=== PATIENT | male | born 1955 | race Caucasian/White ===

== ENCOUNTER 2020-03-29 04:36 | Inpatient (IN) | payer MEDICARE ==
[~2020-03-29] VITALS: Ht 165.1 cm; Wt 72.3 kg
[2020-03-29 05:12] VITALS: BP 117/67; BMI 23.2
[2020-03-29] MEDS ORDERED: BUMEX2 MG PO (05:50)
[2020-03-29] MEDS ORDERED: LISINOPRIL40 MG PO (05:52)
[2020-03-29] MEDS ORDERED: CELEXA20 MG PO (05:53)
[2020-03-29] MEDS ORDERED: PLAVIX75 MG PO (05:53)
[2020-03-29] MEDS ORDERED: JANUMET 50-1,01 EAC1 PO (05:55)
[2020-03-29] MEDS ORDERED: CLEOCIN HCL300 MG PO (05:56)
--- NOTE | 2020-03-29 06:06 | NUR ---
PATIENT ARRIVED AT 0450 FROM [facility] ER, VSS, CODE WORD 9687, CODE STATUS IS FULL CODE, IMPLANTED DEFIBULATOR, S.I. AT [facility] ER, CELLULITIS AND CUT TO RIGHT LEG, COOPERATIVE AND CALM, CONTRACTS FOR SAFETY, WILL [id number] TO MONITOR.
[2020-03-29 06:35] LABS: BASOPHILS 0.2 % (0-2); HEMATOCRIT 32.3 % (42.0-54.0); IMMATURE GRANULOCYTES 0.5 % (0-5); LYMPHOCYTES 23.5 % (15-50); MCH 28.1 pg (26.0-34.0); MCV 90.7 fL (80.0-100.0); MEAN PLATELET VOLUME 10.6 fL (7.4-10.4); MONOCYTES 10.2 % (2-11); NEUTROPHILS 62.6 % (40-80); RBC 3.56 10x6/uL (4.20-6.10); RDW 15.5 % (11.5-14.5); WBC 5.7 10x3/uL (4.8-10.8)
[2020-03-29 06:44] LABS: PLATELET COUNT 312 10x3/uL (130-400)
[2020-03-29 07:17] LABS: ALBUMIN 2.6 g/dL (3.4-5.0); ALKALINE PHOSPHATASE 104 U/L (30-120); ALT (SGPT) 9 U/L (10-68); BILIRUBIN - TOTAL 0.23 mg/dL (0.2-1.3); CALC OSMOLALITY 276 mosm/kg (275-300); CALCIUM 8.7 mg/dL (8.5-10.1); CARBON DIOXIDE 31.5 mmol/L (21.0-32.0); CHLORIDE - SERUM 104 mmol/L (98-107); CHOL - HDL RATIO 4.1 ratio (2.3-4.9); CHOLESTEROL, TOTAL 143 mg/dL (0-200); CREATININE - SERUM 0.6 mg/dL (0.6-1.3); GLUCOSE 89 mg/dL (74-106); HDL CHOLESTEROL 35 mg/dL (32-96); LDL CHOLESTEROL 94 mg/dL (0-100); LDL-HDL RATIO 2.7 ratio (1.5-3.5); POTASSIUM - SERUM 3.6 mmol/L (3.5-5.1); SODIUM 140 mmol/L (136-145); THYROID STIMULATING HORMONE 1.12 uIU/mL (0.36-3.74); TRIGLYCERIDE 72 mg/dL (30-200); UREA NITROGEN 9 mg/dL (7-18); eGFR NON AFRICAN AMERICAN > 90 mL/min (90-120)
[2020-03-29 10:30] VITALS: BP 112/57
[2020-03-29 12:42] VITALS: BMI 23.2
--- NOTE | 2020-03-29 17:17 | NUR ---
RECEIVED UP IN WHEELCHAIR THIS AM.STATES "nothing has changed " when asked if he still has thoughts of hurting self.C/O PAIN TO RT LOWER LEG.BANDAID TO AREA DISTAL TO RT KNEE CLEAN AND DRY,SKIN WARM TO TOUCH.WILL CONTINUE WITH CURRENT PLAN OF CARE,MONITOR FOR CHANGES AND SAFETY.MEDICATE FOR PAIN PER .
[2020-03-29 20:00] VITALS: BP 94/65
--- NOTE | 2020-03-30 00:39 | NUR ---
B) Patient is alert and oriented to person, place and time, no S.I. this shift, needy at times, I) Administered scheduled medications as ordered, monitored for safety R) Mediation compliant, boundary testing at times, P) Continue plan of care.
[2020-03-30 12:57] VITALS: BP 70/50
--- NOTE | 2020-03-30 16:28 | NUR ---
RECEIVED THIS AM SITTING IN WHEELCHAIR.IS ORIENTED.RT KNEE SWOLLEN,BANDAIDE DISTAL TO KNEE INTACT,CLEAN AND DRY.BP THIS AM 50/70,RECHECKED BEFORE MEDS GIVEN /.BUMEX AND LISINOPRIL HELD.IS COMPLIANT WITH STAFF AND MEDS.WILLCONTINUE WITH CURRENT PLAN OF CARE.
[2020-03-30 17:11] LABS: BILIRUBIN NEGATIVE (NEGATIVE); GLUCOSE NEGATIVE (NEGATIVE); KETONE NEGATIVE (NEGATIVE); NITRITE NEGATIVE (NEGATIVE); UROBILINOGEN NORMAL (NORMAL)
[2020-03-30 17:12] LABS: BACTERIA FEW /hpf (NEGATIVE); EPITHELIAL CELLS OCC /hpf (0-5); RED CELLS - URINE >50 /hpf (0-5); WHITE CELLS - URINE OCC /hpf (NEGATIVE)
[2020-03-30 20:00] VITALS: BP 100/50
--- NOTE | 2020-03-30 20:54 | NUR ---
RECEIVED IN DAYROOM. SITTING IN A CHAIR WITH PEERS AT HIS SIDE. CALM AND COOPERAIVE WITH CARE AND ASSESSMENT. NO STATEMENTS OF SELF HARM VOICED. ENCOURAGE TO EXPRESS NEEDS. CONTINUES TO SIT CALMLY IN DAYROOM. CONTINUE PLAN OF CARE.
--- NOTE | 2020-03-30 21:13 | NUR ---
PT IS DEMANDING OF STAFF. HE IS DIFFICULT TO REDIRECT AT TIMES. WILL CONTINUE TO MONITOR.
[2020-03-31 10:28] VITALS: BP 96/52
--- NOTE | 2020-03-31 12:00 | NUR ---
RECEIVED IN HALLWAY OUTSIDE OF NURSES STATION. CALM AND COOPERATIVE WITH CARE AND ASSESSMENT. DENIES SUICIDAL IDEATION. REDIRECT AND REORIENT NEEDED. EATING LUNCH AT THIS TIME. CONTINUE PLAN OF CARE.
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
[2020-03-31 20:38] VITALS: BP 107/67
--- NOTE | 2020-03-31 23:04 | NUR ---
RECEIVED IN DAYROOM. SITTING IN A CHAIR WITH PEERS AT HER SIDE. CALM AND COOPERATIVE WITH CARE AND ASSESSMENT. NO STATEMENTS OF SELF HARM VOICED THIS EVENING. ENCOURAGE TO EXPRESS NEEDS. RESTING IN BED WITH EYES CLOSED. CONTINUE PLAN OF CARE.
[2020-04-01 03:07] LABS: RAPID PLASMA REAGIN Non Reactive (Non Reactive)
[2020-04-01 08:07] VITALS: BP 104/59
--- NOTE | 2020-04-01 09:57 | NUR ---
Nutrition Follow-up: Diet: Diabetic PO intake: ~52% average x last 6 meals No BM recorded since admit. WT: 148# (03/30/20); Admit WT: 152.8# (03/29/20) Meds noted: bumex, metformin, Januvia. Labs noted: POC Glu 116(H). Skin: stage III PU on left heel with staph aureus growth Weight difference noted but only one day differnce in weights taken, will continue to monitor. Will add Glucerna and Akbar to diet order for nutritionally aided wound healing. Recommend continue current diet. RD following.
--- NOTE | 2020-04-01 12:00 | NUR ---
RECEIVED IN HALLWAY OUTSIDE OF NURSES STATION. CALM AND COOPERATIVE WITH CARE AND ASSESSMENT. NO BEHAVIORS. REDIRECT AND REORIENT NEEDED. EATTING AT THIS TIME. CONTINUE PLAN OF CARE.
--- NOTE | 2020-04-01 15:31 | PN ---
PATIENT:RANDY HOLCOMB MEDICAL RECORD: [id number] LOCATION:GILMAR GarciaGiuliaColby ADMISSION DATE: 03/29/20 PROGRESS NOTE DATE OF SERVICE: 03/31/2020 SUBJECTIVE: The patient's case was discussed with staff. He has no new complaint. OBJECTIVE: The patient is in good behavioral control. He denies that he would currently seek to harm himself. ASSESSMENT: Major depression. PLAN: Current medicines have been reviewed and will be maintained. Long-term prognosis is guarded. TRANSINT:[id number] Voice Confirmation ID: [id number] DOCUMENT ID: [id number] NICKI FARIA MD at 1531 CC: [id number] DICTATION DATE: 03/31/20 1606 BATTER MIXER HELPER: 04/01/20 0222 ADM IN [facility] [address] [place] [address]
[2020-04-01 19:24] VITALS: BP 102/61
--- NOTE | 2020-04-02 00:54 | NUR ---
RECEIVED IN DAYROOM. SITTING IN A CHAIR WITH PEERS AT HIS SIDE. NOT SOCIAL. CALM AND COOPERATIVE WITH CARE AND ASSESSMENT. NO STATEMENTS OF SELF HARM VOICED THIS PM. ENCOURAGE TO EXPRESS NEEDS. IN BED WITH EYES OPEN AT THIS TIME.MHT AT BEDSIDE. CONTINUE PLAN OF CARE.
--- NOTE | 2020-04-02 13:02 | PN ---
PATIENT:RANDY HOLCOMB MEDICAL RECORD: [id number] LOCATION:GIL[facility] Zamora ADMISSION DATE: 03/29/20 PROGRESS NOTE DATE OF SERVICE: 04/01/2020 SUBJECTIVE: The patient's case was discussed with staff. He has no new complaint. OBJECTIVE: The patient denies that he would seek to harm himself or others. He is displaying a depressed mood. He has a number of significant social stressors including homelessness, poverty, and a lack of support from any outside sources. ASSESSMENT: Major depression. PLAN: I am going to ask physical therapy to work with the patient. He is concerned about losing his ability to walk if he spends too much time in a wheelchair Unfortunately, the abscess on his leg is positive for MRSA and he is on infection precautions right now. TRANSINT:[id number] Voice Confirmation ID: [id number] DOCUMENT ID: [id number] NICKI FARIA MD at 1302 CC: [id number] DICTATION DATE: 04/01/20 1644 CLOTHES IRONER: 04/02/20 0048 ADM IN [facility] [address] [place] [id number]
--- NOTE | 2020-04-02 15:32 | NUR ---
Nutrition Follow-up: Diet: Diabetic + Glucerna TID + Akbar BID PO intake: ~40% average x last 9 meals Last BM: . WT: 148# (03/30/20); Admit Wt: 152.8# (03/29/20) Meds noted: bumex, metformin, januvia. Labs noted: POC Glu 116(H) Skin: wound to leg +staph aureus, r/o MRSA Weight difference noted, one day difference between weights but will continue to monitor as PO intake is marginal. Also noted pt is on bumex. Recommend continue current diet and oral nutrition supplements. RD following.
--- NOTE | 2020-04-02 17:59 | NUR ---
PT IS AWAKE AND ALERT X 4. PT CALM AND COOPERATIVE WITH ASSESSMENT AT THIS TIME. PRESCRIBED MEDS PROVIDED ORDERED. MED COMPLIANT. NO BEHAVIORS NOTED AT THIS TIME. WILL CPOC.
[2020-04-02 20:47] VITALS: BP 115/60
--- NOTE | 2020-04-03 01:52 | NUR ---
B.) PT IS ALERT AND ORIENTED TO SELF AND SITUATION. HE IS RECEIVED IN THE DAYROOM SLEEPING ON THE COUCH. HE IS CALM AND COOPERATIVE WITH STAFF. HE HAS A FLAT AFFECT BUT IMPROVED ATTITUDE. HE IS IN CONTACT ISOLATION AND IS WEARING GLOVES BUT NO GOWN. I.) PROVIDED PM MEDICATIONS PRESCRIBED. EDUCATION ON CONTACT ISOLATION. REDIRECT NEEDED. R.) COMPLIANT WITH ALL MEDICATIONS. VERBALIZED UNDERSTANDING OF IMPORTANCE OF WEARING A GOWN. EASY TO REDIRECT. P.) WILL CONTINUE TO MONITOR.
--- NOTE | 2020-04-03 06:40 | NUR ---
SPOKE WITH LAB. PT WOUND CULTURE SHOWS MRSA. PT TO REMAIN ON CONTACT ISOLATION.
[2020-04-03 09:51] VITALS: BP 102/64
--- NOTE | 2020-04-03 11:30 | NUR ---
PATIENT DENIES ANY SUICIDAL IDEATION AT THIS TIME.
--- NOTE | 2020-04-03 15:32 | PN ---
PATIENT:RANDY HOLCOMB MEDICAL RECORD: [id number] LOCATION:RadhaLARRYTessa Ram113 ADMISSION DATE: 03/29/20 PROGRESS NOTE DATE OF SERVICE: 04/02/2020 SUBJECTIVE: The patient's case was discussed with staff. He has no new complaint. OBJECTIVE: The patient slept well last night. He ate reasonably well yesterday. He denies that he would seek to harm himself or others. He has tolerated his medicines well. ASSESSMENT: Major depression. PLAN: The patient can be transitioned out of the hospital soon if this level of improvement continues. The location of where to transition him is a more pressing issue given the circumstances that have already been outlined multiple times in the medical record. TRANSINT:[id number] Voice Confirmation ID: [id number] DOCUMENT ID: [id number] NICKI FARIA MD at 1532 CC: [id number] DICTATION DATE: 04/02/20 1625 RANGE SCIENTIST: 04/03/20 0217 ADM IN [facility] [address] [place] [id number]
--- NOTE | 2020-04-03 18:51 | NUR ---
B) PATIENT IS AWAKE AND ORIENTED X 4. RECEIVED LYING ON SOFA. IN CONTACT ISOLATION, WEARING GLOVES AND GOWN. HE HAS A FLAT AFFECT. I) ADMINISTER SCHEDULED MEDICATIONS, MONITOR FOR SAFETY AND NEEDS. R) MEDICATION COMPLIANT, REDIRECT NEEDED. P) CONTINUE PLAN OF CARE.
[2020-04-03 20:23] VITALS: BP 103/60
--- NOTE | 2020-04-04 01:56 | NUR ---
B) Patient is alert and oriented to person, place, time and situation, calm and cooperative this shift, I) Administered scheduled medications, maintained isolation protocols, assisted with needs R) Mediation compliant, follows instructions, no behaviors noted, P) Continue plan of care.
--- NOTE | 2020-04-04 09:52 | PN ---
PATIENT:RANDY HOLCOMB MEDICAL RECORD: [id number] LOCATION:GILMAR Ram113 ADMISSION DATE: 03/29/20 PROGRESS NOTE DATE OF SERVICE: 04/03/2020 SUBJECTIVE: The patient's case was discussed with staff. He has no new complaint. OBJECTIVE: The patient is in good behavioral control. He has poor insight about his situation. ASSESSMENT: Major depression. PLAN: Brief supportive and educational interventions were made. Long-term prognosis is guarded. Discharge planning is going to be an issue. I have discussed this with the treatment team and we are looking at various options. TRANSINT:[id number] Voice Confirmation ID: [id number] DOCUMENT ID: [id number] NICKI FARIA MD at 0952 CC: [id number] DICTATION DATE: 04/03/20 165 BACON DE RINDER: 04/03/20 2348 ADM IN [facility] [address] [place] [address]
[2020-04-04 11:01] VITALS: BP 94/54
--- NOTE | 2020-04-04 12:06 | NUR ---
The patient is awake, but he has been sleeping on the couch most of the day and he does make demands on staff to get him coffee and then he does not drink much of it. He just complained that he did not get buttermilk today. Explianed to him that he needs to ambulate not sit in a w/c he said "Well, I'm upset that they aren't doing more for my leg." Provided him a walker and he is ambulating. Provide prescribed meds. The patient is compliant with meds. Continue POC.
[2020-04-04 20:00] VITALS: BP 99/62
--- NOTE | 2020-04-04 20:00 | NUR ---
RECEIVED PATIENT IN DAYROOM SITTING TO HIMSELF. HE IS QUIET. CAN MAKE ALL NEEDS KNOWN, COMPLIANT WITH MEDS. NO AGGRESSION NOTED. HE HAS IS A YELLOW GOWN ON AND GLOVES DUE TO MRSA IN HIS KNEE WOUND. WILL FOLLOW POC
--- NOTE | 2020-04-05 08:01 | NUR ---
The patient is awake and alert, he is calm, but he is demanding and he does not take direction well. Staff need to remind him to use a walker not the w/c. He can be demanding. Provide prescribed meds. He is compliant with meds. His fsbs is 119. Continue POC.
[2020-04-05 10:25] VITALS: BP 96/68
--- NOTE | 2020-04-05 11:53 | NUR ---
The patient c/o his left heel having a sore. Both Mila Brand APN and I visualized his heel and there is dry skin with a scab that is heeling. No open area noted to his left heel. Cleansed left calf and applied bactroban and a bandage also applied bactroban to his nares as per order.
[2020-04-05 12:52] LABS: BASOPHILS 0.1 % (0-2); EOSINOPHILS 0.7 % (0-7); HEMATOCRIT 39.5 % (42.0-54.0); HEMOGLOBIN 12.5 g/dL (13.5-17.5); IMMATURE GRANULOCYTES 1.5 % (0-5); LYMPHOCYTES 20.8 % (15-50); MCH 28.3 pg (26.0-34.0); MCHC 31.6 g/dL (31.0-37.0); MCV 89.4 fL (80.0-100.0); MEAN PLATELET VOLUME 11.7 fL (7.4-10.4); NEUTROPHILS 64.9 % (40-80); PLATELET COUNT 348 10x3/uL (130-400); RBC 4.42 10x6/uL (4.20-6.10); RDW 15.2 % (11.5-14.5); WBC 6.7 10x3/uL (4.8-10.8)
[2020-04-05 13:06] LABS: ALBUMIN 3.4 g/dL (3.4-5.0); ALKALINE PHOSPHATASE 131 U/L (30-120); ALT (SGPT) 15 U/L (10-68); BILIRUBIN - TOTAL 0.39 mg/dL (0.2-1.3); CALC OSMOLALITY 263 mosm/kg (275-300); CALCIUM 9.3 mg/dL (8.5-10.1); CARBON DIOXIDE 37.7 mmol/L (21.0-32.0); CHLORIDE - SERUM 91 mmol/L (98-107); CREATININE - SERUM 0.9 mg/dL (0.6-1.3); GLUCOSE 81 mg/dL (74-106); POTASSIUM - SERUM 3.6 mmol/L (3.5-5.1); PROTEIN - SERUM 8.7 g/dL (6.4-8.2); SODIUM 132 mmol/L (136-145); UREA NITROGEN 13 mg/dL (7-18); eGFR NON AFRICAN AMERICAN 90 mL/min (90-120)
--- NOTE | 2020-04-05 13:45 | NUR ---
Obtained specimen for COVID, sent to lab.
[2020-04-05 20:42] VITALS: BP 107/55
--- NOTE | 2020-04-05 21:30 | NUR ---
PATIENT IS QUIET, DEMANDING, COMPLIANT WITH MEDS, CONTACT ISOLATION FOR MRSA TO RIGHT KNEE WOUND. WILL FOLLOW POC
[2020-04-06 09:48] VITALS: BP 146/65
--- NOTE | 2020-04-06 13:12 | NUR ---
PT IS RESTING ON COUCH IN DAYROOM. CALM AND COOPERATIVE WITH ASSESSMENT. PT IS VERY DEMANDING, DISRESPECTFUL, AND ATTENTION SEEKING TOWARDS STAFF. PRESCRIBED MEDS PROVIDED ORDERED. MED COMPLIANT. PT DENIES SI AT THIS TIME. WILL CPOC.
[2020-04-06 21:08] VITALS: BP 79/49
--- NOTE | 2020-04-06 23:12 | NUR ---
RECEIVED IN DAYROOM. SITTING IN A CHAIR WITH PEERS AT HIS SIDE. CALM AND COOPERATIVE WITH CARE AND ASSESSMENT. NO STATEMENTS OF SELF HARM VOICED THIS PM. ENCOURAGE TO EXPRESS NEEDED. RESTING IN BED WITH EYES CLOSED AT THIS TIME. CONTINUE PLAN OF CARE.
[2020-04-07 08:37] VITALS: BP 91/49
--- NOTE | 2020-04-07 12:00 | NUR ---
RECEIVED IN HALLWAY OUTSIDE OF NURSES STATION. CALM AND COOPERATIVE WITH CARE AND ASSESSMENT. DENIES SUICIDAL IDEATION. REDIRECT AND REORIENT NEEDED. EATING AT THIS TIME. CONTINUE PLAN OF CARE.
[2020-04-07 20:06] VITALS: BP 93/58
--- NOTE | 2020-04-07 23:15 | NUR ---
RECEIVED IN DAYROOM. SITTING IN A CHAIR WITH PEERS AT HER SIDE. CALM AND COOPERATIVE WITH CARE AND ASSESSMENT. NO STATEMENTS OF SELF HARM VERBALIZED THIS PM. ENCOURAGE TO EXPRESS NEEDS. RESTING IN BED WITH EYES CLOSED AT THIS TIME. CONTINUE PLAN OF CARE.
--- NOTE | 2020-04-08 06:28 | NUR ---
DRESSING CHANGE TO ABSCESS ON THE OUTER ASPECT OF RIGHT KNEE. PURULENT DISCHARGE NOTED. DRESSING CHANGE PER ORDER. WILL CONTINUE TO MONITOR.
[2020-04-08 09:05] VITALS: BP 96/49
--- NOTE | 2020-04-08 13:20 | PN ---
PATIENT:RANDY HOLCOMB MEDICAL RECORD: [id number] LOCATION:RadhaLARRYTessa Ram113 ADMISSION DATE: 03/29/20 PROGRESS NOTE DATE OF SERVICE: 04/07/2020 SUBJECTIVE: The patient's case was discussed with staff. He has no new complaint. OBJECTIVE: The patient is in good behavioral control. He has poor insight about his situation. ASSESSMENT: Major depression. PLAN: The patient can be transitioned out of the hospital as soon as appropriate placement is arranged. TRANSINT:[id number] Voice Confirmation ID: [id number] DOCUMENT ID: [id number] NICKI FARIA MD at 1320 CC: [id number] DICTATION DATE: 04/07/20 1636 PUBLIC AFFAIRS OFFICER: 04/08/20 0021 ADM IN [place] [facility] [id number] [place] [address]
[2020-04-08 19:56] VITALS: BP 103/55
--- NOTE | 2020-04-08 22:45 | NUR ---
RECEIVED IN DAYROOM. SITTING IN A CHAIR WITH PEERS AT HIS SIDE. CALM AND COOPERATIVE WITH CARE AND ASSESSMENT. NO STATEMENTS OF SELF HARM VOICED THIS PM. ENCOURAGE TO EXPRESS NEEDS. RESTING IN BED WITH EYES CLOSED AT THIS TIME. CONTINUE PLAN OF CARE.
[2020-04-09 09:57] VITALS: BP 104/51
--- NOTE | 2020-04-09 11:14 | NUR ---
Pt has 2 chronic wounds: Left heel has a stage 3 pressure injury measuring 4cm x 4cm. Pt states it has been there since September. The wound is dry and peeling. There is no odor. Right knee has a 1cm x 1cm x 0.5cm open wound. There is a large amount of serous drainage. Bactroban ointment is being applied BID. Recommended the left heel be cleansed and covered with adaptic, 4x4s and kerlix to secure (and for cushion). Wound care will continue monitoring.
--- NOTE | 2020-04-09 14:36 | NUR ---
Nutrition Follow-up: PO intake somewhat improved. Noted pt with stage 3 wound to L heel and open wound to R knee. Miralax added per MD. Diet: Diabetic, Glucerna TID, Akbar BID PO intake: 50% avg x 9 meals Wt: 147# (04/06); 148# (03/30) Last BM: 04/04 Labs noted: Glu 90 Meds noted: Miralax, Folate, vitamin D, Glucophage, vitamin B12, Januvia -Encourage PO intake and honor food preferences within diet restrictions. -Pt may benefit from appetite stimulant. -Monitor wt. -RD following.
--- NOTE | 2020-04-09 15:36 | PN ---
PATIENT:RANDY HOLCOMB MEDICAL RECORD: [id number] LOCATION:GILMAR Zamora ADMISSION DATE: 03/29/20 PROGRESS NOTE DATE OF SERVICE: 04/08/2020 SUBJECTIVE: The patient's case was discussed with staff. He has no new complaint. OBJECTIVE: The patient is in good behavioral control with poor insight about his situation. He has no thoughts of harming himself or others. ASSESSMENT: Major depression. PLAN: The patient does not have psychiatric symptoms that require this level of care at this time. Unfortunately, he cannot be discharged because he has no place to go. He is homeless and he has been referred to a senior living, but the senior living cannot accept him until the office of long-term care reviews his case and gives approval. In the interim, he currently has wound on his leg that is apparently worsening. I am going to leave this to Dr. Dillon and his nurse practitioner to address as they see appropriate, but I would add that there is nothing about his current psychiatric situation that would make him unsafe to be managed in a different setting. He could be transferred to the medical floor or he could be transferred to a long-term care. Either setting would be acceptable if that is needed. TRANSINT:[id number] Voice Confirmation ID: [id number] DOCUMENT ID: [id number] NICKI FARIA MD at 1536 CC: [id number] DICTATION DATE: 04/08/20 1614 PRESSROOM SUPERVISOR: 04/09/20 0125 ADM IN [address] [place] [id number]
--- NOTE | 2020-04-09 16:00 | NUR ---
RECEIVED IN HALLWAY SITTING IN WHEELCHAIR. CALM AND COOPERATIVE WITH CARE AND ASSESSMENT. NO SUICIDAL IDEATION. REDIRECT AND REORIENT NEEDED. MEDICATION COMPLIANT. CONTINUE PLAN OF CARE.
[2020-04-09 20:00] VITALS: BP 99/48
--- NOTE | 2020-04-09 23:36 | NUR ---
PATIENT IS QUIET BUT DEMANDING. COMPLIANT [facility] MEDS. PATIENT IS STILL IN CONTACT ISOLATION FOR MRSA TO RIGHT KNEE. WILL FOLLOW POC
[2020-04-10 10:31] VITALS: BP 106/60
--- NOTE | 2020-04-10 12:17 | PN ---
PATIENT:RANDY HOLCOMB MEDICAL RECORD: [id number] LOCATION:GILMAR Zamora ADMISSION DATE: 03/29/20 PROGRESS NOTE DATE OF SERVICE: 04/09/2020 SUBJECTIVE: The patient's case was discussed with staff. He has no new complaint. OBJECTIVE: The patient denies intent to harm himself or others. He is tolerating his medicines well. He is fully oriented. His mood has improved. ASSESSMENT: Major depression. PLAN: The patient is appropriate to be transitioned out of the hospital as soon as appropriate arrangements can be made. TRANSINT:[id number] Voice Confirmation ID: [id number] DOCUMENT ID: [id number] NICKI FARIA MD at 1217 CC: [id number] DICTATION DATE: 04/09/20 1603 ACCOUNT SUPPORT REP: 04/10/20 0054 ADM IN [facility] [address] [place] [id number]
[2020-04-10 20:04] VITALS: BP 107/54
--- NOTE | 2020-04-10 20:27 | NUR ---
RECEIVED PATIENT IN DAYROOM, EATING A SNACK, HE HAS HIS CONTACT ISOLATION GOWN ON, HE IS CALM AT THIS TIME. COMPLIANT WITH MEDS, MAKES ALL NEEDS KNOWN.
--- NOTE | 2020-04-11 08:28 | NUR ---
The patient is awake and alert, he is in his yellow iso gown and gloves. Changed his bandage to his left calf. Cleansed wound and applied antibiotic as ordered. Covered with a bandaid. The wound continues to ooze a small amount, but it looks like it is healing. The patient is calm, he doesn't interact with others or staff unless he is spoke to. He did ask this nurse to look at his left heel. He does have dried skin, but it is not remarkable. Provide prescribed meds. The patient is compliant with meds. He wants to sleep a lot. Continue POC.
[2020-04-11 09:55] VITALS: BP 102/40
[2020-04-11 20:00] VITALS: BP 90/71
--- NOTE | 2020-04-12 03:57 | NUR ---
B) Patient is alert and oriented to person, place and time, calm and cooperative, needy at times, I) Administered scheduled medications as ordered, R) Mediation compliant, follows unit miliue P) Continue plan of care.
--- NOTE | 2020-04-12 10:00 | NUR ---
B) PATIENT IS ORIENTED TO PLACE, TIME AND SELF. CALM AND COOPERATIVE WITH CARE AND ASSESSMENT. STAYS TO HIMSELF, DOESN'T SOCIALIZE WITH PEERS. I) ADMINISTERED MEDICATIONS ORDERED. REDIRECT ANS REORIENT NEEDED. R) MEDICATION COMPLIANT. LAYING ON SOFA MOST OF DAY. P) CONTINUE PLAN OF CARE
[2020-04-12 20:02] VITALS: BP 94/47
--- NOTE | 2020-04-12 22:08 | NUR ---
B.) PT IS ALERT AND ORIENTED X4. HE IS USING A WHEELCHAIR TO ASSIST WITH AMBULATION. HE IS CALM AND COOPERATIVE WITH STAFF. HE DENIES SI. I.) PROVIDED PM MEDICATIONS PRESCRIBED. REDIRECT NEEDED. R R.) COMPLIANT WITH ALL MEDICATIONS. EASY TO REDIRECT. P.) WILL CONTINUE TO MONITOR.
[2020-04-13 13:48] VITALS: BP 130/64
--- NOTE | 2020-04-13 18:37 | NUR ---
ORIENTED X 4.DENIES THOUGHTS OF SELFHARM.COMPLIANT WITH STAFF AND MEDS.AMBULATES.NO BEHAVIORS OBSERVED.WILL CONTINUE WITH CURRENT PLAN OF CARE,MONITOR FOR SAFETY AND CHANGES.
--- NOTE | 2020-04-13 19:18 | PN ---
PATIENT:RANDY HOLCOMB MEDICAL RECORD: [id number] LOCATION:GILMAR Zamora ADMISSION DATE: 03/29/20 PROGRESS NOTE DATE OF SERVICE: 04/10/2020 SUBJECTIVE: The patient's case was discussed with staff. He has no new complaint. OBJECTIVE: The patient denies that he would seek to harm himself or others. He does tolerate his medicines well. He has no aggressive behavior. ASSESSMENT: Major depression. PLAN: I believe the patient's condition has improved enough such that he could reasonably be transitioned out of the hospital. Unfortunately, I do not have a place to transition him to. He has pretty limited insight about his situation. TRANSINT:[id number] Voice Confirmation ID: [id number] DOCUMENT ID: [id number] NICKI FARIA MD at 1918 CC: [id number] DICTATION DATE: 04/10/20 1425 SAND SLINGER: 04/10/20 1834 ADM IN [facility] [address] [place] [id number]
[2020-04-13 20:24] VITALS: BP 104/53
--- NOTE | 2020-04-13 20:31 | NUR ---
RECEIVED IN DAYROOM. SITTING IN A CHAIR WITH PEERS AT HIS SIDE. CALM AND COOPERATIVE WITH CARE AND ASSESSMENT. NO STATEMENTS OF SELF HARM VOICED. ENCOURAGE TO EXPRESS NEEDS. COTNINUES TO SIT CALMLY IN DAYROOM. CONTINUE PLAN OF CARE.
[2020-04-14 08:41] VITALS: BP 94/51
--- NOTE | 2020-04-14 09:38 | NUR ---
The patient is awake and alert, he is on isolation and he has his yellow gown and gloves on. He is not showing aggression. He denies suicidal ideations. Provide prescribed meds. The patient is compliant with meds. He needs much redirection to use a walker not a w/c. Continue POC.
[2020-04-14 20:10] VITALS: BP 94/59
--- NOTE | 2020-04-14 22:50 | NUR ---
RECEIVED IN DAYROOM. SITTING IN A CHAIR WITH PEERS AT HIS SIDE. CALM AND COOPERATIVE WITH CARE AND ASSESSMENT. NO STATEMENTS OF SELF HARM VOICED THIS EVENING. ENCOURAGE TO EXPRESS NEEDS. RESTING IN BED WITH EYES CLOSED. CONTINUE PLAN OF CARE.
[2020-04-15 11:40] VITALS: BP 97/54
--- NOTE | 2020-04-15 12:24 | NUR ---
RECEIVED IN HALLWAY OUTSIDE OF NURSES STATION. CALM AND COOPERATIVE WITH CARE AND ASSESSMENT. DENIES SUICIDAL IDEATION. NO BEHAVIORS. REDIRECT AND REORIENT NEEDED. EATING AT THIS TIME. CONTINUE PLAN OF CARE.
[2020-04-15 20:53] VITALS: BP 91/47
--- NOTE | 2020-04-15 23:22 | NUR ---
RECEIVED IN DAYROOM. SITTING IN A CHAIR WITH PEERS AT HIS SIDE. CALM AND COOPERATIVE WITH CARE AND ASSESSMENT. NO SIGNS OF AGGRESSION. NO STATEMENTS OF SELF HARM VOICED. ENCOURAGE TO EXPRESS NEEDS. RESTING IN BED WITH EYES CLOSED AT THIS TIME. CONTINUE PLAN OF CARE.
--- NOTE | 2020-04-16 08:39 | NUR ---
The patient is awake and alert, he is pleasnt. He uses a walker to ambulate. He has a bandaid to his left calf. He is wearing an isolation gown an gloves. He is negative and depressed in affect. He denies suicidal ideations. Provide prescribed meds. The patient is compliant with meds. Continue POC.
--- NOTE | 2020-04-16 14:55 | NUR ---
Nutrition Follow-up: Diet: Diabetic + Glucerna TID and Akbar BID PO Intake: ~69% average x last 9 recorded meals Last BM: 04/10/20. WT: 148.8# (04/13/20); Admit WT: 152.8# (03/29/20) Meds noted: miralax, metformin, Juanuvia. Labs noted: POC Glu 87(WNL) Skin: stage III left heel, wound below right knee (healing per MD notes) Weight change of -4# noted. PO intake seems marginally adequate now. Recommend continue current diet and oral nutrition supplement for wound healing. May need increase in bowel regimen to promote BM regularity and help prevent decreased appetite. RD following.
[2020-04-16 20:03] VITALS: BP 99/56
--- NOTE | 2020-04-17 03:53 | NUR ---
B.) PT IS ALERT AND ORIENTED TO SELF AND PLACE AND SITUATION. HE IS USING A WALKER TO ASSIST WITH AMBULATION. HE IS ABLE TO MAKE HIS NEEDS KNOWN. HE IS CALM, COOPERATIVE AND PLEASANT WITH STAFF. I.) PROVIDED PM MEDICATIONS PRESCRIBED. REDIRECT NEEDED. R.) COMPLIANT WITH ALL MEDICATIONS. EASY TO REDIRECT. P.) WILL CONTINUE TO MONITOR.
[2020-04-17 09:42] VITALS: BP 98/51
--- NOTE | 2020-04-17 13:38 | NUR ---
The patient is awake and alert he is pleasant and he is staying more awake today reading a book. He has not shown any aggression today. provide prescribed meds. The patient is compliant with meds. He is isoaltion d/t MRSA in his wound on his leg. He is wearing his yellow gown and gloves as prescribed. Continue POC.
[2020-04-17 20:19] VITALS: BP 97/57
--- NOTE | 2020-04-18 01:18 | NUR ---
B.) PT IS ALERT AND ORIENTED X4. HE IS CALM AND COOPERATIVE WITH STAFF. HE IS USING A WALKER TO ASSIST WITH AMBULATION. DENIES SI I.) PROVIDED PM MEDICATIONS PRESCRIBED. REDIRECT NEEDED. COLLECTED WOUND CULTURE ON RIGHT KNEE ABCESS. R.) COMPLIANT WITH ALL MEDICATIONS. EASY TO REDIRECT. P.) WILL CONTINUE TO MONITOR.
--- NOTE | 2020-04-18 13:44 | NUR ---
The patient is awake and alert he is pleasant and calm. He is able to make his needs known and he is not showing any SI or aggression at this time. Provide prescribed meds. The patient is compliant with meds. He ambulates with a walker. Continue to monitor his behavior and continue poc.
[2020-04-18 20:08] VITALS: BP 94/53
--- NOTE | 2020-04-18 23:18 | NUR ---
RECEIVED PATIENT IN DAYROOM, CALM, MAKES NEEDS KNOWN. STILL IN CONTACT ISOLATION. DENIES S/I. COMPLIANT WITH MEDS. WILL FOLLOW POC
--- NOTE | 2020-04-19 08:02 | NUR ---
The patient is calm. He denies SI today. He is blunted in affect, he does not smile, but he has a dry sense of humor. He ambulates with a walker. He is interacting with staff and peers a little more. He is on isolation and he is wearing a yellow gown and gloves. He has a wound that has a bandaid. Provide prescribed meds. The patient is compliant with meds. Continue POC.
[2020-04-19 09:54] VITALS: BP 90/42
[2020-04-19 20:00] VITALS: BP 100/56
--- NOTE | 2020-04-19 21:48 | NUR ---
RECEIVED IN DAYROOM. SITTING IN A CHAIR WITH PEERS AT HIS SIDE. CALM AND COOPERATIVE WITH CARE AND ASSESSMENT. NO STATEMENTS OF SELF HARM VOICED THIS EVENING. ENCOURAGE TO EXPRESS NEEDS. CONTINUES TO SIT CALMLY IN DAYROOM. CONTINUE PLAN OF CARE.
[2020-04-20 09:18] VITALS: BP 85/44
--- NOTE | 2020-04-20 09:49 | NUR ---
The patient is awake and alert, he is flat to blunted in affect. He is calm and he is not making any suicidal ideations. He has not made any comments about depression either. Cleansed his wound on his left calf. The wound is oozing purulent drainage mixed with blood. Applied the mupurocin and two small bandaids. Provide prescribed meds. The patient is compliant with meds. A staff member from [facility] came down and made sure that the patient remains on isolation as his recent would culture is positive for staff aureus and we are awaiting the results for MRSA to his wound on his left calf. He also mentioned to Mariajose Grant APN that he has pain in his bilateral feet. Continue POC.
--- NOTE | 2020-04-20 20:02 | NUR ---
RECEIVED IN DAYROOM. SITTING CALMLY IN DAYROOM. CALM AND COOPERATIVE WITH CARE AND ASSESSMENT. NO STATEMENTS OF SELF HARM VOICED THIS EVENING. REDIRECT AND REOREINT NEEDED. CONTINUES TO SIT CALMLY IN DAYROOM. CONTINUE PLAN OF CARE.
[2020-04-20 20:06] VITALS: BP 102/54
--- NOTE | 2020-04-20 21:01 | NUR ---
NURSE CLEANED PTS KNEE AREA WITH NORMAL SALINE AND CHANGED BANDAIDS TO PT KNEE. INTIATED AND DATE AT THIS TIME. PT TOLERATED CHANGE WELL.
--- NOTE | 2020-04-21 12:00 | NUR ---
RECEIVED IN HALLWAY OUTSIDE OF NURSES STATION. CALM AND COOPERATIVE WITH CARE AND ASSESSMENT. NO BEHAVIORS. DENIES SI. REDIRECT AND REORIENT NEEDED. EATING AT THIS TIME. CONTINUE PLAN OF CARE.
[2020-04-21 19:51] VITALS: BP 94/52
--- NOTE | 2020-04-21 21:01 | NUR ---
RECEIVED IN DAYROOM. SITTING IN A CHAIR WITH PEERS AT HIS SIDE. CALM AND COOPERATIVE WITH CARE AND ASSESSMENT. NO STATEMENTS OF SELF HARM VOICED AT THIS TIME. CONTINUE PLAN OF CARE.
--- NOTE | 2020-04-22 06:16 | NUR ---
PT DRESSING CHANGE TO RIGHT KNEE ABCESS. LARGE AMOUNT OF PURULENT EXUDATE.
[2020-04-22 10:00] VITALS: BP 90/50
--- NOTE | 2020-04-22 12:00 | NUR ---
RECEIVED IN HALLWAY OUTSIDE OF NURSES STATION. CALM AND COOPERATIVE WITH CARE ADN ASSESSMENT. NO BEHAVIORS. DENIES SI. REDIRECT AND REORIENT NEEDED. EATING AT THIS TIME. CONTINUE PLAN OF CARE.
--- NOTE | 2020-04-22 15:08 | PN ---
PATIENT:RANDY HOLCOMB MEDICAL RECORD: [id number] LOCATION:[facility] ADMISSION DATE: 03/29/20 PROGRESS NOTE DATE OF SERVICE: 04/21/2020 SUBJECTIVE: The patient's case was discussed with staff. He has no new complaint. OBJECTIVE: The patient is in good behavioral control. He is denying intent to harm himself or others. He is tolerating his medicines reasonably well. ASSESSMENT: 1. Major depression. 2. Dementia. PLAN: Current medicines have been reviewed. I am going to stop the BuSpar for lack of clinical indication. I am going to reduce the Celexa to 20 mg daily. He will be discharged as soon as placement can be arranged. TRANSINT:[id number] Voice Confirmation ID: [id number] DOCUMENT ID: [id number] NICKI FARIA MD at 1508 CC: [id number] DICTATION DATE: 04/21/20 1539 FUEL CELL SYSTEMS ENGINEER: 04/21/20 2343 ADM IN [place] [id number] [place] [address]
[2020-04-22 20:11] VITALS: BP 95/49
--- NOTE | 2020-04-22 21:08 | NUR ---
RECEIVEDIN DAYROOM. SITTING IN A CHAIR WITH PEERS AT HIS SIDE. CALM AND COOPERATIVE WITH CARE AND ASSESSMENT. NO STATEMENTS OF SELF HARM VOICED THIS EVENING. ENCOURAGE TO EXPRESS NEEDS. CONTINUES TO SIT CALMLY IN DAYROOM. CONTINUE PLAN OF CARE.
--- NOTE | 2020-04-23 13:55 | NUR ---
The patient is awake and alert, he is pleasant and calm, he is on isolation and he is wearing a yellow gown and gloves. He ambulates independently. He has poor insight into his situation. Provide prescribed meds. The patient is compliant with meds. Continue POC.
--- NOTE | 2020-04-23 14:55 | NUR ---
The patient's wound is oozing yellowish discharge. Cleansed the area, applied bactroban and a new bandaid and added a small kerlix and tape.
--- NOTE | 2020-04-23 15:17 | NUR ---
Nutrition Follow-up: Diet: Diabetic + Glucerna TID and Akbar BID PO intake: ~78% x last 9 meals Last BM: 04/20/20. WT: 150.8# (04/20/20); Admit Wt: 152.8# (03/29/20) Meds noted: Januvia, miralax, metformin. Labs noted: POC Glu 132(H) Skin: open wound below right knee (MRSA+) and dry PU to L heel Recommend continue current diet and oral nutrition supplements. RD following.
--- NOTE | 2020-04-23 16:23 | PN ---
PATIENT:RANDY HOLCOMB MEDICAL RECORD: [id number] LOCATION:[facility] ADMISSION DATE: 03/29/20 PROGRESS NOTE DATE OF SERVICE: 04/22/2020 SUBJECTIVE: The patient's case was discussed with staff. He has no new complaint. OBJECTIVE: The patient is in good behavioral control with limited insight about his situation. He has not been aggressive. ASSESSMENT: Major depression. PLAN: The patient's discharge is pending, waiting on approval from the office of long-term care. TRANSINT:[id number] Voice Confirmation ID: [id number] DOCUMENT ID: [id number] NICKI FARIA MD at 1623 CC: [id number] DICTATION DATE: 04/22/20 1601 THERMOSTAT MAKER: 04/22/20 2207 ADM IN [place] [id number] [place] [address]
[2020-04-23 20:00] VITALS: BP 93/51
--- NOTE | 2020-04-23 21:01 | NUR ---
RECEIVED IN DAYROOM. WATCHING TV. CALM AND COOPERATIVE WITH CARE AND ASSESSMENT. NO BEHAVIORS. DENIES SI. REDIRECT AND REORIENT NEEDED. PARTICIPATING IN GROUP AT THIS TIME. CONTINUE PLAN OF CARE.
[2020-04-24 10:11] VITALS: BP 109/50
--- NOTE | 2020-04-24 16:51 | PN ---
PATIENT:RANDY HOLCOMB MEDICAL RECORD: [id number] LOCATION:[facility] ADMISSION DATE: 03/29/20 PROGRESS NOTE DATE OF SERVICE: 04/23/2020 SUBJECTIVE: The patient's case was discussed with staff. He has no new complaint. OBJECTIVE: The patient is eating and sleeping well. He has no thoughts of harming himself or others. He is tolerating his medicines well. ASSESSMENT: Major depression. PLAN: The patient will be maintained on current medicines. I anticipate he can be transitioned out of the hospital soon. At this point, it is a placement issue. TRANSINT:[id number] Voice Confirmation ID: [id number] DOCUMENT ID: [id number] NICKI FARIA MD at 1651 CC: [id number] DICTATION DATE: 04/23/20 171 EPIC STORK SPECIALISTS: 04/23/202032 ADM IN [facility] [address] [place] [address]
--- NOTE | 2020-04-24 18:42 | NUR ---
IS QUITE AND COOPERATIVE,WATCHES TV WITH MALE PEER.NO BEHAVIORS OBSERVED.CULTURE DONE ON RT LEG WOUND TODAY.WOUND HAS CREAMY,LIGHT YELLOW DRAINAGE.NO FOUL ODOR PRESENT.CLEANED WITH WOUND CLEANSER AND LARGE BANDAID APPLIED.WILL CONTINUE WITH CURRENT PLAN OF CARE,MONITOR FOR CHANGES AND SAFETY.
[2020-04-24 19:36] VITALS: BP 105/51
--- NOTE | 2020-04-25 02:39 | NUR ---
B) Patient is alert and oriented to person and place, defiant at times, tries to direct staff at times, I) Administered scheduled medications as ordered, redirected as needed, R) medication compliant, rude and needy at times P) Continue plan of care.
--- NOTE | 2020-04-25 08:37 | NUR ---
The patient is awake and and alert, he is blunted in affect, but he is interacting more with staff and peers. He has poor insight into his situation as he tries to pick at his sore on his leg. It has been explained to him that he is on isolation d/t an infection in his leg. He remains in a yellow gown and gloves. He ambulates with a walker, but he wants to use a w/c. Provide prescribed meds. The patient is compliant with meds. Continue POC.
[2020-04-25 10:11] VITALS: BP 93/47
--- NOTE | 2020-04-25 13:01 | PN ---
PATIENT:RANDY HOLCOMB MEDICAL RECORD: [id number] LOCATION:[facility] ADMISSION DATE: 03/29/20 PROGRESS NOTE DATE OF SERVICE: 04/24/2020 SUBJECTIVE: The patient's case was discussed with staff. He has no new complaint. OBJECTIVE: The patient has limited insight about his condition. He is tolerating his medicines well. ASSESSMENT: Major depression. PLAN: The patient will be maintained on current medicines. He is ready for discharge and fully oriented. Unfortunately, as has been documented multiple times, there is no place that he can be sent. TRANSINT:[id number] Voice Confirmation ID: [id number] DOCUMENT ID: [id number] NICKI FARIA MD at 1301 CC: [id number] DICTATION DATE: 04/24/201828 MIRROR FRAMER: 04/24/202118 ADM IN [place] [id number] [place] [id number]
[2020-04-25 20:00] VITALS: BP 95/53
--- NOTE | 2020-04-25 21:33 | NUR ---
B.) PT IS ALERT AND ORIENTED TO SELF, PLACE AND SITUATION. HE IS CALM AND COOPERATIVE WITH STAFF. HE IS ABLE TO VOICE NEEDS AND WANTS. HE USES A WALKER TO ASSIST WITH AMBULATION. I.) PROVIDED PM MEDICATIONS PRESCRIBED. REDIRECT NEEDED. R.) COMPLIANT WITH ALL MEDICATIONS PRESCRIBED. EASY TO REDIRECT. P.) WILL CONTINUE TO MONITOR
[2020-04-26 09:51] VITALS: BP 97/52
--- NOTE | 2020-04-26 11:32 | NUR ---
The patient is awake and he is oriented x3, he is quiet, but he is interacting more with staff and peers. He c/o his right heel hurting, but he has no sores on it, dry skin noted. Changed his band aid after cleansing the area and applying mupirocin. It is healing with noted yellowish exuadate. He remains on contact isolation, he is wearing gloves and a yellow gown. He uses a walker to ambulate. He denies SI, or HI, but he has a blunted affect. Provide prescribed meds. The patient is compliant with meds. Continue POC.
[2020-04-26 20:00] VITALS: BP 103/54
--- NOTE | 2020-04-26 22:38 | NUR ---
B) Patient is alert and oriented to person and place, calm and cooperative this shift, I) Administered scheduled medications as ordered, monitored for safety, dressing change to right leg, R) Medication compliant, resting quietly in bed now, P) Continue plan of care.
[2020-04-27 08:44] VITALS: BP 115/64
--- NOTE | 2020-04-27 11:23 | NUR ---
Changed the patient's bandaid after cleansing the area and applying mupirocin. The wound has well granulated edges, the epithelial is pink. In the center of the wound there is a small opening that has a small amount of yellow tinged drainage. New bandaid applied.
--- NOTE | 2020-04-27 11:42 | NUR ---
The patient is sleeping a lot today. He wakes up to eat and he watches TV. He denies SI, HI, and depression. He ambulates with a walker. Provide prescribed meds. The patient is compliant with meds. Continue POC.
[2020-04-27 15:09] LABS: AEROBE ID Final report (())
[2020-04-27 19:19] VITALS: BP 116/62
--- NOTE | 2020-04-27 20:16 | NUR ---
RECEIVED IN DAYROOM. SITTING IN A CHAIR WITH PEERS AT HIS SIDE. CALM AND COOPERATIVE WITH CARE AND ASSESSMENT. NO STATEMENTS OF SELF HARM VOICED AT THIS TIME. ENCOURAGE TO EXPRESS NEEDS. CONTINUES TO SIT CALMLY IN DAYROOM. CONTINUE PLAN OF CARE.
[2020-04-28 08:46] VITALS: BP 91/47
--- NOTE | 2020-04-28 12:00 | NUR ---
RECEIVED IN HALLWAY OUTSIDE OF NURSES STATION. CALM AND COOPERATIVE WITH CARE AND ASSESSMENT. NO BEHAVIORS. REDIRECT AND REORIENT NEEDED. EATING AT THIS TIME. CONTINUE PLAN OF CARE.
[2020-04-28 12:25] LABS: BASOPHILS 0.1 % (0-2); EOSINOPHILS 1.8 % (0-7); HEMATOCRIT 36.8 % (42.0-54.0); HEMOGLOBIN 11.4 g/dL (13.5-17.5); IMMATURE GRANULOCYTES 0.3 % (0-5); MCH 28.5 pg (26.0-34.0); MEAN PLATELET VOLUME 10.5 fL (7.4-10.4); MONOCYTES 8.5 % (2-11); NEUTROPHILS 75.3 % (40-80); RDW 16.3 % (11.5-14.5); WBC 7.2 10x3/uL (4.8-10.8)
[2020-04-28 12:27] LABS: PLATELET COUNT 209 10x3/uL (130-400)
[2020-04-28 12:37] LABS: ALBUMIN 3.4 g/dL (3.4-5.0); ALKALINE PHOSPHATASE 117 U/L (30-120); ALT (SGPT) 13 U/L (10-68); BILIRUBIN - TOTAL 0.22 mg/dL (0.2-1.3); C-REACTIVE PROTEIN 3.4 mg/dL (0.0-0.9); CALC OSMOLALITY 275 mosm/kg (275-300); CALCIUM 9.3 mg/dL (8.5-10.1); CHLORIDE - SERUM 102 mmol/L (98-107); CREATININE - SERUM 0.6 mg/dL (0.6-1.3); GLUCOSE 84 mg/dL (74-106); POTASSIUM - SERUM 3.6 mmol/L (3.5-5.1); PROTEIN - SERUM 7.9 g/dL (6.4-8.2); SODIUM 140 mmol/L (136-145); UREA NITROGEN 7 mg/dL (7-18); eGFR NON AFRICAN AMERICAN > 90 mL/min (90-120)
[2020-04-28 14:02] LABS: ERYTHROCYTE SEDIMENTATION RATE 39 mm/hr (0-20)
[2020-04-28 20:18] VITALS: BP 102/53
[2020-04-29 09:50] VITALS: BP 108/51
--- NOTE | 2020-04-29 16:37 | PN ---
PATIENT:RANDY HOLCOMB MEDICAL RECORD: [id number] LOCATION:[facility] ADMISSION DATE: 03/29/20 PROGRESS NOTE DATE OF SERVICE: 04/28/2020 SUBJECTIVE: The patient's case was discussed with staff. He has no new complaint. OBJECTIVE: The patient is in good behavioral control and oriented. He has no thoughts of harming himself or others. ASSESSMENT: Major depression. PLAN: The patient will be discharged as soon as placement can be arranged. TRANSINT:[id number] Voice Confirmation ID: [id number] DOCUMENT ID: [id number] NICKI FARIA MD at 1637 CC: [id number] DICTATION DATE: 04/28/201811 DIRECTOR OF CORPORATE SALES: 04/28/202128 ADM IN [place] [address] [place] [address]
[2020-04-29 20:01] VITALS: BP 97/48
--- NOTE | 2020-04-30 03:08 | NUR ---
B) Patient is alert and oriented to person and place, calm and cooperative, maintains isolation protocols, I) Administered scheduled medications as ordered, monitored for safety R) Mediation compliant, follows unit miliue P) Continue plan of care.
[2020-04-30 07:52] VITALS: BP 84/41
[2020-04-30 11:38] VITALS: Ht 165.1 cm; Wt 72.3 kg
--- NOTE | 2020-04-30 12:17 | NUR ---
The patient is awake and alert he is blunted in affect, he interacts with staff and peers. Dr. Barber Valles's WINDING OPERATOR came and assessed his wound. She explained to him that they may do an I&D so that it will heal. He ambulates with a walker. Provide prescribed meds. The patient is compliant with meds. Continue POC.
--- NOTE | 2020-04-30 12:43 | PN ---
PATIENT:RANDY HOLCOMB MEDICAL RECORD: [id number] LOCATION:[facility] ADMISSION DATE: 03/29/20 PROGRESS NOTE DATE OF SERVICE: 04/29/2020 SUBJECTIVE: The patient's case was discussed with staff. He has no new complaint. OBJECTIVE: The patient is in good behavioral control. He has poor insight about his situation. He has been denied by multiple nursing homes and again as soon as a halfway will accept him, I will transition him out of the hospital. TRANSINT:[id number] Voice Confirmation ID: [id number] DOCUMENT ID: [id number] NICKI FARIA MD at 1243 CC: [id number] DICTATION DATE: 04/29/20 1648 OIL EXTRACTOR: 04/29/20 2343 ADM IN [place] [id number] [place] [id number]
--- NOTE | 2020-04-30 14:10 | NUR ---
Nutrition Follow-up: Diet: Diabetic + Glucerna TID + Akbar BID PO intake: ~62% average x last 9 meals Last BM: 04/30/20. Wt: 149.8# (04/27/20); Admit Wt: 152.8# (03/29/20) Meds noted: miralax, metformin, Januvia. Labs noted: POC Glu 81(WNL) Skin: continues with chronic wound to R knee. Will continue abx and wound care, may require R AKA per ortho notes. Recommend continue current diet and oral nutrition supplements. Encourage intake of Akbar for nutritionally aided wound healing micronutrients. RD following.
[2020-04-30 20:33] VITALS: BP 103/52
--- NOTE | 2020-04-30 22:31 | NUR ---
B.) PT IS ALERT AND ORIENTED TO SELF, PLACE AND TIME. HE IS CALM AND COOPERATIVE WITH STAFF. HE USES A WHEELCHAIR TO ASSIST WITH AMBULATION. HE IS PLEASANT WITH STAFF. I.) PROVIDED PM MEDICATIONS PRESCRIBED. DRESSING CHANGED TO RIGHT KNEE ABCESS AND RIGHT ORNELAS ABCESS. R.) COMPLIANT WITH ALL MEDICATIONS. PURULENT DRAINAGE NOTED. P.) WILL CONTINUE TO MONITOR.
[2020-05-01 08:42] VITALS: BP 85/46
--- NOTE | 2020-05-01 13:32 | PN ---
PATIENT:RANDY HOLCOMB MEDICAL RECORD: [id number] LOCATION:[facility] ADMISSION DATE: 03/29/20 PROGRESS NOTE DATE OF SERVICE: 04/30/2020 SUBJECTIVE: The patient's case was discussed with staff. He has no new complaint. OBJECTIVE: The patient denies intent to harm himself or others. He is in good behavioral control. He is scheduled to go to the senior living soon. At this point, we are simply waiting for some clerical paperwork type issues to be cleared up so that he can be transferred. He has no thoughts of self-harm and his depression has dramatically improved. He will be transitioned out of the hospital as soon as placement is arranged. TRANSINT:[id number] Voice Confirmation ID: [id number] DOCUMENT ID: [id number] NICKI FAIRA MD at 1332 CC: [id number] DICTATION DATE: 04/30/20 1500 FACILITY MANAGER: 05/01/20 0014 ADM IN [facility] [address] [place] [address]
--- NOTE | 2020-05-01 13:44 | NUR ---
The patient has been awake today, but now he is sleeping. He told Dr. Phipps that he did not sleep last night and he wants something to help him sleep. He was quite upset and griping about it. He has two sores on his right leg and he has a scab on his left heel. Cleansed and new bandaids applied. He keeps asking when that lady is coming so he can have surgery. Explained to him that the orthopedic DrGiulia wants to continue his antibiotic and then they will reevaluate from there. Provide prescribed meds. The patient is compliant with meds. He ambulates with a walker. He has a blunted affect and he is by nature a negative person. Continue POC.
[2020-05-01 20:06] VITALS: BP 113/60
--- NOTE | 2020-05-02 02:33 | NUR ---
B) Patient is alert and oriented to person and place, calm and cooperative, I) Administered scheduled medications as ordered, dressing change to right leg, isolation protocols R) Medication compliant, isolation protocols compliant, pleasant and friendly toward staff, P) Continue plan of care.
--- NOTE | 2020-05-02 07:34 | NUR ---
The patient is awake and alert, he has a dry sense of humor. Dr. Dillon is talking to the patient about his diagnosis of osteomyelitis and that the orthopedic DrGiulia wants to continue antibiotics and if that is not beneficial then he may need an amputation of the affected leg. The patient verbalized understanding and he said "Well, I'd just like to get it over with, I don't want it to spread." Dr. Dillon said "Well, let's follow the DrGiulia's direction with the antibiotic and then let him decide." The patient is joking about having a hard time buying shoes. Provide prescribed meds. The patient is compliant with meds. Continue POC.
[2020-05-02 09:19] VITALS: BP 99/59
--- NOTE | 2020-05-02 11:31 | NUR ---
Cleansed the patient's right knee and right ewir wound. Both areas are red, edematous, with yellow drainage. The patient continues to talk about the antibiotic not working and he just wants to talk to the orthopedic dr. and have the surgery.
--- NOTE | 2020-05-02 12:00 | NUR ---
SW CONTINUES TO HAVE PROBLEMS PLACING PT DUE TO COVID. PT WAS DENIED BY [facility]. [facility] BUT CAN'T ACCEPT HIM RIGHT NOW. THEIR SISTER FACILITY IS FULL AND CAN'T ACCEPT EITHER DUE TO COVID. SW WILL ATTEMPT OUT OF CITY PLACEMENT AT THIS TIME. HOWEVER, MOST NURSING HOMES ARE STATING THEY CANNOT ACCEPT.
--- NOTE | 2020-05-02 12:43 | PN ---
PATIENT:RANDY HOLCOMB MEDICAL RECORD: [id number] LOCATION:[facility] ADMISSION DATE: 03/29/20 PROGRESS NOTE DATE OF SERVICE: 05/01/2020 SUBJECTIVE: The patient's case was discussed with staff. He has no new complaint. OBJECTIVE: The patient is oriented fully. He denies that he would seek to harm himself or others. He is generally tolerating his medications well. He insists he did not sleep last night, although the staff records 8 hours. ASSESSMENT: Major depression. PLAN: Current medicines have been reviewed and will be maintained. His long-term prognosis is guarded. I did discuss his orthopedic situation with Dr. Blandon. Dr. Blandon says the osteomyelitis that is present is not going to be curable and that the best we can do is keep it under reasonable control with antibiotics. I would like to see the patient in 2 weeks. If the patient is transferred to [place], he needs to see an orthopedic surgeon there. Unfortunately, if the antibiotics do not keep the infection under control because of the amount of hardware that is already in the leg and the location and severity of the infection, the only option is going to be an above-knee amputation of that leg. TRANSINT:[id number] Voice Confirmation ID: [id number] DOCUMENT ID: [id number] NICKI FARIA MD at 1243 CC: [id number] DICTATION DATE: 05/01/20 1453 LIFE ASSURANCE REPRESENTATIVE: 05/01/20 1859 ADM IN [facility] [address] [place] [address]
--- NOTE | 2020-05-02 14:46 | NUR ---
The patient is concerned about his left heel. He wants to see his medical Dr. as soon as he can. He says "I have a bone spur." He spoke to Dr. Dillon this am. Will see or his CRYPTOGRAPHIC TECHNICIAN tomorrow.
--- NOTE | 2020-05-02 18:23 | NUR ---
STAFF ENCOURAGED PT TO DRINK HIS NAIMA. OFFERED TO MIX IN A DRINK FOR BETTER TASTE. PT REFUSED STATING I KNOW WHAT THAT DOES AND I AINT DRINKING IT." NURSE EDUCATED PT ON THE BENEFITS TO IMPROVE WOUNDS. PT DID NOT WANT TO DRINK NAIMA. WILL CONT TO ENCOURAGE.
[2020-05-02 20:10] VITALS: BP 87/57
--- NOTE | 2020-05-02 20:48 | NUR ---
RECEIVED PATIENT IN DAYROOM, WATCHING T.V. HE HAS OWN YELLOW GOWN AND GLOVES, MAKES ALLL NEEDS KNOWN AND COMPLIANT WITH MEDS. WILL FOLLOW POC
[2020-05-03 09:30] VITALS: BP 95/49
--- NOTE | 2020-05-03 15:10 | NUR ---
ORIENTED X 3.WALKS WITH A WALKER.DRESSING CHANGE DONE TO RIGHT LOWER LEG,HAS 2 OPEN DRAINING WOUNDS.IS IN CONTACT ISOLATION FOR MRSA.DRAINAGE IS THICK CREAMY LIGHT YELLOWISH.NO FOUL ODOR OBSERVED BUT THIS NURSE IS WEARING A MASK.DRESSING CHANGE DONE WITH NON ADHERENT PADS,4X4'S,AND WRAPPED WITH KERLEX.WOUNDS FIRST CLEANED WITH WOUND CLEANSER.IS COMPLIANT WITH STAFF AND MEDS.ENJOYS SITTING IN RECLINER WATCHING TV.WILL CONTINUE WITH CURRENT PLAN OF CARE,MONITOR FOR CHANGES AND SAFETY.
[2020-05-03 19:16] VITALS: BP 101/63
--- NOTE | 2020-05-03 20:33 | NUR ---
RECEIVED PATIENT IN DAYROOM, WATCHING A MOVIE, CONTENT, NOT CONFUSED, COMPLIANT WITH MEDS, MAKES ALL OF HIS NEEDS KNOWN, HE IS WEARING PPE'S, WILL FOLLOW POC
[2020-05-04 09:47] VITALS: BP 114/54
--- NOTE | 2020-05-04 12:00 | NUR ---
RECEIVED IN HALLWAY OUTSIDE OF NURSES STATION. CALM AND COOPERATIVE WITH CARE AND ASSESSMENT. DENIES SUICIDAL IDEATION. PATIENT STATES HE WANTS HIS RIGHT LEG AMPUTATED BEFORE HE LEAVES THE HOSPITAL. REDIRECT AND REORIENT NEEDED. EATING AT THIS TIME. CONTINUE PLAN OF CARE.
[2020-05-04 20:14] VITALS: BP 124/57
--- NOTE | 2020-05-04 20:38 | NUR ---
RECEIVED IN DAYROOM. SITTING IN A CHAIR WITH PEERS AT HIS SIDE. SOCIAL AT TIMES CALM AND COOPERATIVE WITH CARE AND ASSESSMENT. DENIES SELF HARM AT THIS TIME. ENCOURAGE TO EXPRESS NEEDS. REDIRECT AND REORIENT NEEDED. CONTINUES TO SIT CALMLY IN DAYROOM. CONTINUE PLAN OF CARE.
[2020-05-05 09:19] VITALS: BP 98/48
[2020-05-05 20:28] VITALS: BP 112/35
--- NOTE | 2020-05-05 23:13 | NUR ---
RECEIVED IN DAYROOM. SITTING IN A CHAIR WITH PEERS AT HIS SIDE. CALM AND COOPERATIVE WITH CARE AND ASSESSMENT. NO STATEMENTS OF SELF HARM VOICED THIS PM. ENCOURAGE TO EXPRESS NEEDS. RESTING IN BED WITH EYES CLOSED. CONTINUE PLAN OF CARE.
--- NOTE | 2020-05-06 10:02 | PN ---
PATIENT:RANDY HOLCOMB MEDICAL RECORD: [id number] LOCATION:[facility] ADMISSION DATE: 03/29/20 PROGRESS NOTE DATE OF SERVICE: 05/05/2020 SUBJECTIVE: The patient's case was discussed with staff. He has no new complaint. OBJECTIVE: The patient is showing a depressed mood, but no evidence of dangerousness. No thoughts of self-harm and no psychotic symptoms. Placement has been an issue. He tells me today that he has thought about his situation with his leg and that he would like me to contact the orthopedic surgeon and have it amputated. I do not know if something that can be done electively at this point or if the situation has to wait until the antibiotics are no longer holding him, but I will find out. TRANSINT:[id number] Voice Confirmation ID: [id number] DOCUMENT ID: [id number] NICKI FARIA MD at 1002 CC: [id number] DICTATION DATE: 05/05/201716 EMT/PARAMEDIC: 05/06/20 0028 ADM IN [facility] [address] [place] [address]
[2020-05-06 10:17] VITALS: BP 148/62
--- NOTE | 2020-05-06 12:00 | NUR ---
RECEIVED IN HALLWAY OUTSIDE OF NURSES STATION. CALM AND COOPERATIVE WITH CARE AND ASSESSMENT. NO BEHAVIORS NOTED. PATIENT IS VERY ADAMANT ABOUT WANTING HIS LEG AMPUTATED. REDIRECT AND REORIENT NEEDED. EATING AT THIS TIME. CONTINUE PLAN OF CARE.
[2020-05-06 18:10] LABS: BASOPHILS 0.6 % (0-2); EOSINOPHILS 2.5 % (0-7); HEMATOCRIT 33.9 % (42.0-54.0); HEMOGLOBIN 10.4 g/dL (13.5-17.5); IMMATURE GRANULOCYTES 1.7 % (0-5); LYMPHOCYTES 20.8 % (15-50); MCH 28.2 pg (26.0-34.0); MCHC 30.7 g/dL (31.0-37.0); MCV 91.9 fL (80.0-100.0); MEAN PLATELET VOLUME 11.1 fL (7.4-10.4); NEUTROPHILS 62.4 % (40-80); RBC 3.69 10x6/uL (4.20-6.10); WBC 7.1 10x3/uL (4.8-10.8)
[2020-05-06 18:13] LABS: PLATELET COUNT 381 10x3/uL (130-400)
[2020-05-06 18:42] LABS: CALC OSMOLALITY 281 mosm/kg (275-300); CALCIUM 8.7 mg/dL (8.5-10.1); CARBON DIOXIDE 34.7 mmol/L (21.0-32.0); CHLORIDE - SERUM 103 mmol/L (98-107); CREATININE - SERUM 0.6 mg/dL (0.6-1.3); GLUCOSE 95 mg/dL (74-106); POTASSIUM - SERUM 3.6 mmol/L (3.5-5.1); SODIUM 142 mmol/L (136-145); UREA NITROGEN 10 mg/dL (7-18); eGFR NON AFRICAN AMERICAN > 90 mL/min (90-120)
[2020-05-06 20:53] VITALS: BP 125/59
--- NOTE | 2020-05-06 23:34 | NUR ---
RECEIVED IN DAYROOM. SITTING IN A CHAIR WITH PEERS AT HIS SIDE. SOCIAL. CALM AND COOPERATIVE WITH CARE AND ASSESSMENT. NO SIGNS OF AGGRESSION. REDIRECT AND REORIENT NEEDED. RESTING IN BED WITH EYES CLOSED AT THIS TIME. CONTINUE PLAN OF CARE.
--- NOTE | 2020-05-07 12:00 | NUR ---
RECEIVED IN HALLWAY OUTSIDE OF NURSES STATION. CALM AND COOPERATIVE WITH CARE AND ASSESSMENT. NO BEHAVIORS NOTED. REDIRECT AND REORIENT NEEDED. EATING AT THIS TIME. CONTINUE PLAN OF CARE.
--- NOTE | 2020-05-07 13:27 | PN ---
PATIENT:RANDY HOLCOMB MEDICAL RECORD: [id number] LOCATION:[facility] ADMISSION DATE: 03/29/20 PROGRESS NOTE DATE OF SERVICE: 05/06/2020 SUBJECTIVE: The patient's case was discussed with staff. He has no new complaint. OBJECTIVE: The patient is in good behavioral control and has no thoughts of self-harm. I have contacted the orthopedic surgeon, and if he will accept him for surgery, he can be transferred to [facility]. ASSESSMENT: Major depression. PLAN: The patient is not dangerous. Hopefully, surgery is pending. He does not want to continue with this leg hurting him as much as it does. TRANSINT:[id number] Voice Confirmation ID: [id number] DOCUMENT ID: [id number] NICKI FARIA MD at 1327 CC: [id number] DICTATION DATE: 05/06/20 1629 AMERICAN BOARD CERTIFIED ORTHOTIST: 05/06/20 2339 ADM IN [facility] [address] [place] [address]
[2020-05-07] MEDS ORDERED: LIPITOR10 MG PO (13:29)
[2020-05-07] MEDS ORDERED: VIBRAMYCIN 100100 MG PO (13:29)
[2020-05-07] MEDS ORDERED: CELEXA20 MG PO (13:29)
[2020-05-07] MEDS ORDERED: DESERYL PO (13:30)
[2020-05-07] MEDS ORDERED: FLORAJEN3 CAPS460 MG PO (13:30)
[2020-05-07] MEDS ORDERED: MIRALAX17 GM PO (13:30)
[2020-05-07] MEDS ORDERED: MOBIC7.5 MG PO (13:30)
[2020-05-07] MEDS ORDERED: PROTONIX40 MG PO (13:30)
[2020-05-07] MEDS ORDERED: NEURONTIN 400400 MG PO (13:30)
[2020-05-07] MEDS ORDERED: GLUCOPHAGE500 MG PO (13:31)
[2020-05-07] MEDS ORDERED: MUPIROCIN22 GM TOPICAL (13:31)
[2020-05-07] MEDS ORDERED: VITAMIN D5000 UNI1 PO (13:31)
[2020-05-07] MEDS ORDERED: FOLIC ACID1 MG PO (13:32)
[2020-05-07] MEDS ORDERED: VITAMIN B-121000 MCG PO (13:32)
[2020-05-07 14:18] VITALS: BP 116/58
--- NOTE | 2020-05-07 15:18 | NUR ---
Nutrition Follow-up: Diet: Diabetic + Glucerna TID + Akbar BID PO intake: 100% x last 9 meals Last BM: 05/03/20. Wt: 155.4# (05/04/20); Admit Wt: 152.8# (03/29/20) Meds noted: miralax, metformin, Januvia. Labs reviewed. Skin: wound to R knee and left heel Recommend continue current diet and oral nutrition supplements. RD following.
--- NOTE | 2020-05-07 16:09 | NUR ---
pt d/c to medical surgical unit per dr. guillen. orders faxed and paper copy sent with pt. pt was excited to discharge for surgery so that he would not be hurting anymore. belongings sent with pt. cellphone and clothing items. pt tolerated d/c well. no distress noted.
== END 2020-05-07 16:00 | disposition short-term general hospital (02) | DRG 885 ==
LOC: D.PSYCH 04:36
PROVIDERS: Family Medicine; ADMIT Psychiatry & Neurology Psychiatry; ATTEND Psychiatry & Neurology Psychiatry
DX: F33.2 Major depressive disorder, recurrent severe without psychotic features (principal); L89.623 Pressure ulcer of left heel, stage 3; L03.115 Cellulitis of right lower limb; J44.9 Chronic obstructive pulmonary disease, unspecified; J45.909 Unspecified asthma, uncomplicated; E11.9 Type 2 diabetes mellitus without complications; I48.0 Paroxysmal atrial fibrillation; E78.00 Pure hypercholesterolemia, unspecified; M15.3 Secondary multiple arthritis; E53.8 Deficiency of other specified B group vitamins; E55.9 Vitamin D deficiency, unspecified

== ENCOUNTER 2020-05-07 16:22 | Inpatient (IN) | payer MEDICARE ==
[~2020-05-07] VITALS: Ht 165.1 cm; Wt 70.8 kg
--- NOTE | 2020-05-07 16:00 | NUR ---
ARRIVED TO UNIT FROM PS FOR SURGERY ON TUESDAY, 2 SMALL DRESSINGS NOTED TO R LOWER LEG, AWAITING ORDERS
[~2020-05-07 16:22] MED LIST: BUMEX2 MG PO; CELEXA20 MG PO; CLEOCIN HCL300 MG PO; DESERYL PO; FLORAJEN3 CAPS460 MG PO; FOLIC ACID1 MG PO; GLUCOPHAGE500 MG PO; JANUMET 50-1,01 EAC1 PO; LIPITOR10 MG PO; LISINOPRIL40 MG PO; MIRALAX17 GM PO; MOBIC7.5 MG PO; MUPIROCIN22 GM TOPICAL; NEURONTIN 400400 MG PO; PLAVIX75 MG PO; PROTONIX40 MG PO; VIBRAMYCIN 100100 MG PO; VITAMIN B-121000 MCG PO; VITAMIN D5000 UNI1 PO
[2020-05-07 16:44] VITALS: BP 119/54
[2020-05-07 17:38] LABS: BASOPHILS 0.3 % (0-2); EOSINOPHILS 2.6 % (0-7); HEMATOCRIT 29.8 % (42.0-54.0); HEMOGLOBIN 9.2 g/dL (13.5-17.5); IMMATURE GRANULOCYTES 1.4 % (0-5); LYMPHOCYTES 19.1 % (15-50); MCH 28.2 pg (26.0-34.0); MCHC 30.9 g/dL (31.0-37.0); MCV 91.4 fL (80.0-100.0); MEAN PLATELET VOLUME 10.4 fL (7.4-10.4); NEUTROPHILS 64.6 % (40-80); PLATELET COUNT 349 10x3/uL (130-400); RBC 3.26 10x6/uL (4.20-6.10); RDW 16.7 % (11.5-14.5); WBC 6.2 10x3/uL (4.8-10.8)
[2020-05-07 17:52] LABS: C-REACTIVE PROTEIN 4.1 mg/dL (0.0-0.9); CALC OSMOLALITY 282 mosm/kg (275-300); CALCIUM 8.6 mg/dL (8.5-10.1); CHLORIDE - SERUM 105 mmol/L (98-107); CREATININE - SERUM 0.5 mg/dL (0.6-1.3); GLUCOSE 88 mg/dL (74-106); POTASSIUM - SERUM 3.5 mmol/L (3.5-5.1); SODIUM 143 mmol/L (136-145); UREA NITROGEN 9 mg/dL (7-18); eGFR NON AFRICAN AMERICAN > 90 mL/min (90-120)
[2020-05-07 18:52] LABS: ERYTHROCYTE SEDIMENTATION RATE 40 mm/hr (0-20)
[2020-05-07 20:00] VITALS: BP 142/67
--- NOTE | 2020-05-07 23:51 | NUR ---
PT ON CL REQUESTING CREAM FOR RT HEEL, STATES HE IS HURTING BAD AND PAIN MEDICATION IS NOT HELPING, EXPLAINED TO PT THAT WE DO NOT HAVE A CREAM TO APPLY BUT I WILL ELEVATE HEEL OFF BED AND APPLY ICE, PT DECLINED, NO OTHER NEEDS AT THIS TIME. CONTINUE WITH PLAN OF CARE
--- NOTE | 2020-05-08 | NUR ---
PT ON CL AGAIN ASKING FOR PAIN MEDICATION, EXPLAINED THAT WHATR HE HAS HE WAS ALREADY ADMINISTERED AND I AM UNABLE TO GIVE HIM ANYTHING ELSE. PT STATED HE HAS NOT HAD ANY MEDICATIONS, WENT OVER MEDS ADMINISTERED TO PT AGAIN PT STATED OK AND ROLLED OVER. CONTINUE WITH ROBB OF CARE
--- NOTE | 2020-05-08 03:11 | NUR ---
pt on cl complaining of headache now, will order tylenol for narayanan under Dr. Dillon and continue with plan of care
[2020-05-08 04:00] VITALS: BP 132/73
--- NOTE | 2020-05-08 04:55 | NUR ---
I have reviewed this patient and I concur with the Shift Assessment completed by the Licensed Practical Nurse today this shift.
--- NOTE | 2020-05-08 07:27 | NUR ---
PT IS RESTING IN BED WITH EYES CLOSED. RESPIRATIONS ARE EVEN AND ULABORED. PT IS EASILY AROUSED WITH VERBAL STIMULATION. PT IS AAOX 4 UPON AROUSAL AND ANSWERS ALL QUESTIONS APPROPRIATELY. PT DENIES PRESENCE OF N/V AND REPORTS NUMBNESS/TINGLING TO RLE. BILATERAL PEDAL PULSES ARE PALP. BLE CAP REFILL ARE < 3. TOES ARE WARM TO TOUCH. CONTACT ISOLATION PRECAUTIONS USED. BED IS IN THE LOWEST POSITION. CALL LIGHT AND BEDSIDE TABLE ARE WITHIN REACH. SIDE RAILS X 2. PT DENIES FURTHER NEEDS. WILL CONT TO MONITOR.
--- NOTE | 2020-05-08 09:50 | NUR ---
EKG COMPLETED AND PLACED IN PT CHART.
[2020-05-08 10:59] VITALS: BP 133/76
[2020-05-08 12:08] VITALS: Ht 165.1 cm; Wt 70.8 kg
[2020-05-08 13:16] VITALS: BP 111/58
--- NOTE | 2020-05-08 14:39 | PN ---
PATIENT:RANDY HOLCOMB MEDICAL RECORD: [id number] LOCATION:[facility] ADMISSION DATE: 05/07/20 PROGRESS NOTE DATE OF SERVICE: 05/07/2020 SUBJECTIVE: The patient's case was discussed with staff. He has no new complaint. OBJECTIVE: The patient is somewhat anxious today. I think that is related to the fact that he is going to have surgery tomorrow. ASSESSMENT: Major depression. PLAN: Current medicines have been reviewed. He will be transferred to the medical floor for surgery tomorrow. TRANSINT:[id number] Voice Confirmation ID: [id number] DOCUMENT ID: [id number] NICKI FARIA MD at 1439 CC: [id number] DICTATION DATE: 05/07/20 1632 PODIATRY TEACHER: 05/08/20 0105 ADM IN [facility] [address] [place] [address]
[2020-05-08 18:02] VITALS: BP 123/63
--- NOTE | 2020-05-08 19:00 | NUR ---
ASSUMED CARE OF PATIENT, PATIENT AAOX4, RESTING QUIETLY WATCHING TV, DENIES NEEDS AT THIS TIME, WILL CONTINUE TO MONITOR PATIENT, CALL LIGHT WITHIN REACH
[2020-05-08 20:00] VITALS: BP 138/76
[2020-05-09] VITALS: BP 123/72
[2020-05-09 04:00] VITALS: BP 136/64
[2020-05-09 05:29] LABS: BASOPHILS 0.3 % (0-2); EOSINOPHILS 2.7 % (0-7); HEMATOCRIT 29.2 % (42.0-54.0); MCH 27.8 pg (26.0-34.0); MCHC 30.8 g/dL (31.0-37.0); MCV 90.1 fL (80.0-100.0); MEAN PLATELET VOLUME 10.8 fL (7.4-10.4); MONOCYTES 10.5 % (2-11); NEUTROPHILS 64.5 % (40-80); PLATELET COUNT 352 10x3/uL (130-400); RBC 3.24 10x6/uL (4.20-6.10); RDW 16.8 % (11.5-14.5)
[2020-05-09 06:57] LABS: INR 1.23 (0.85-1.17); PROTIME 15.4 SECONDS (11.6-15.0)
--- NOTE | 2020-05-09 07:30 | NUR ---
APTIENT LEFT FOR SURGERY WITH PRE MEDICATION AND CONSENTS DONE. STABLE AT TIME OF DEPARTURE WITH SURGICAL STAFF.
[2020-05-09 10:17] VITALS: BP 110/55
--- NOTE | 2020-05-09 10:20 | NUR ---
RETURNED FROM SURGERY WITH DRESSING INTACT TO RIGHT AKA.DRESSING C/D/I AND DENIES ANY PAIN OR DISCOMFORT AT THIS TIME. O2 3L N/C WITH TELEMETRY INTACT.SCD INTACT TO LLE. IV TO LEFT WRIST WITH NO S/S OF INFECTION/INFILTRATION. ENCOURAGED TO USE CALL LIGHT FOR ASSIST.
[2020-05-09 16:33] VITALS: BP 117/59
[2020-05-09 20:00] VITALS: BP 104/59
[2020-05-10 00:18] VITALS: BP 126/66
[2020-05-10 04:00] VITALS: BP 126/70
[2020-05-10 09:42] VITALS: BP 127/59
[2020-05-10 12:52] VITALS: BP 120/66
[2020-05-10 17:15] VITALS: BP 111/65
[2020-05-10 20:00] VITALS: BP 139/68
--- NOTE | 2020-05-10 20:20 | NUR ---
COMPLAINTS OF INCISIONAL PAIN TO RIGHT AKA. PERCOCET 1 TAB GIVEN PER ORDERS. MINOO WRAP TO RIGHT STUMP INTACT WIHTOUT DRAINAGE NOTED. CL IN REACH.
[2020-05-11] VITALS: BP 128/64
[2020-05-11 04:00] VITALS: BP 131/67
[2020-05-11 09:07] VITALS: BP 140/69
[2020-05-11 10:42] LABS: BASOPHILS 0.2 % (0-2); EOSINOPHILS 2.6 % (0-7); HEMATOCRIT 27.7 % (42.0-54.0); HEMOGLOBIN 8.4 g/dL (13.5-17.5); IMMATURE GRANULOCYTES 0.5 % (0-5); LYMPHOCYTES 9.1 % (15-50); MCH 28.1 pg (26.0-34.0); MCHC 30.3 g/dL (31.0-37.0); MCV 92.6 fL (80.0-100.0); MEAN PLATELET VOLUME 10.8 fL (7.4-10.4); MONOCYTES 10.4 % (2-11); NEUTROPHILS 77.2 % (40-80); PLATELET COUNT 299 10x3/uL (130-400); RBC 2.99 10x6/uL (4.20-6.10); RDW 16.8 % (11.5-14.5); WBC 9.7 10x3/uL (4.8-10.8)
[2020-05-11 10:54] LABS: CALC OSMOLALITY 276 mosm/kg (275-300); CALCIUM 8.2 mg/dL (8.5-10.1); CARBON DIOXIDE 36.2 mmol/L (21.0-32.0); CHLORIDE - SERUM 103 mmol/L (98-107); CREATININE - SERUM 0.6 mg/dL (0.6-1.3); POTASSIUM - SERUM 3.6 mmol/L (3.5-5.1); SODIUM 139 mmol/L (136-145); UREA NITROGEN 5 mg/dL (7-18); eGFR NON AFRICAN AMERICAN > 90 mL/min (90-120)
[2020-05-11 10:56] LABS: GLUCOSE 133 mg/dL (74-106)
--- NOTE | 2020-05-11 12:09 | NUR ---
REHAB PRESCREENING Rehab referral received and chart reviewed. This patient has [facility] as his provider which requires prior authorization for rehab benefits. OT eval is pending. We will submit clinicals for approval when OT evaluation is completed on Tuesday. Thanks so much for this referral! Meagan Menjivar, PILE DRIVING SUPERVISOR Rehab PD
[2020-05-11 13:48] VITALS: BP 149/70
[2020-05-11 17:03] VITALS: BP 138/66
[2020-05-11 20:00] VITALS: BP 148/69
[2020-05-12] VITALS: BP 137/72
--- NOTE | 2020-05-12 02:10 | NUR ---
I have reviewed this patient and I concur with the Shift Assessment completed by the Licensed Practical Nurse today this shift.
--- NOTE | 2020-05-12 08:30 | NUR ---
PATIENT IN BED WITH IV INTACT. NO COMPLAINTS OR SIGNS OF DISTRESS. DRESSING OFF. STATED IT FELL OFF AND HE WANTS TO LEAVE IT OFF. SAID HE IS WAITING TO SEE DR. BRISCOE. BA ON. CALL LIGHT WITHIN REACH.
[2020-05-12 08:41] VITALS: BP 123/61
[2020-05-12 12:27] VITALS: BP 109/62
--- NOTE | 2020-05-12 13:28 | MORECARE ---
CASE MANAGEMENT DISCHARGE SUMMARY PATIENT: RANDY HOLCOMB UNIT: [id number] ADM DATE: 05/07/20 AGE: 64 : 53 SEX: M ROOM/BED: D.2209 AUTHOR: ELDER AFGAN PHYSICIAN: REFERRING PHYSICIAN: BECCA DUTTON MD DATE OF SERVICE: 05/12/20 Discharge Plan Patient Name: RANDY HOLCOMB [facility] [facility] 1955 Planned Disposition: Group Home Facility Anticipated Discharge Date: Discharge Date: Expected LOS: Initial Reviewer: [email or web address] Initial Review Date: 05/07/2020 Generated: 05/12/20 2:28 pm Comments DCP- Discharge Planning Updated by [email or web address]: Cheyenne Aleman on 05/12/20 12:[address] PER ADELAIDA THE WARD HELPER HE IS GOOD TO GO TO ANY PRISON, SHE THOUGHT IT WOULD BE BEST IF HE STAYED IN WITH HIS DR'S ARE. I HAVE SENT THE REFERRAL TO THE [facility] External Providers External Provider: [facility] Next Contact Date: Service Request Date: Service Type: Resolution: Reviewer: Comments: Patient Name: RANDY HOLCOMB Page [phone] at 1328 All edits/amendments must be made on the electronic document DICTATION DATE: 05/12/20 1328 FINISHING MACHINE TENDER: PETE 05/12/20 1328 RPT#: [id number] DC DATE: STATUS: ADM IN [facility] [address] [place] [address] END OF REPORT
--- NOTE | 2020-05-12 15:55 | NUR ---
OT NOTE: PT COMPLETED BED MOB TASKS WITH MOD A. PT COMPLETED SIMPLE HYGIENE TASKS WITH SETUP. PT EXHIBITED MILD CONFUSION AND REQUIRED MIN VERBAL CUES FOR REDIRECTION. [phone] THANK YOU,YAYA ARNETT
[2020-05-12 16:38] VITALS: BP 126/66
--- NOTE | 2020-05-12 19:26 | NUR ---
PATIENT IN BED WITH IV INTACT. STILL HAS DRESSING OFF OF AMPUTATION INCISION. STATED HE DOESNT WANT IT PUT BACK ON. NO DRAINAGE NOTED. INCISION INTACT. REPORT GIVEN TO MYRA MONTAÑO.
--- NOTE | 2020-05-12 19:55 | NUR ---
LYING IN BED. ALERT AND ORIENTED X4. RATES PAIN 10 IN RLE. MEDICATED WITH PERCOCET ORDERED. REFUSES TO LET STAFF PUT DRSG ON RT STUMP. DEBRA NOTED TO RT AKA. O2 @ 3.5L/NC. SALINE LOCK NOTED TO LT FOREARM. TELEMETRY SHOWS SR WITH RATE OF 72. BED ALARM IN USE FOR PT SAFETY. SR ELEVATED X2. CL IN REACH.
[2020-05-12 20:00] VITALS: BP 151/74
[2020-05-13] VITALS: BP 135/59
--- NOTE | 2020-05-13 02:15 | NUR ---
MEDICATED WITH PERCOCET FOR C/O RLE PAIN. CL IN REACH.
[2020-05-13 04:00] VITALS: BP 142/67
[2020-05-13 05:14] LABS: BASOPHILS 0.1 % (0-2); IMMATURE GRANULOCYTES 0.6 % (0-5); LYMPHOCYTES 12.5 % (15-50); MCH 28.1 pg (26.0-34.0); MCHC 30.4 g/dL (31.0-37.0); MCV 92.3 fL (80.0-100.0); MEAN PLATELET VOLUME 10.8 fL (7.4-10.4); MONOCYTES 9.8 % (2-11); PLATELET COUNT 258 10x3/uL (130-400); RDW 16.8 % (11.5-14.5); WBC 7.9 10x3/uL (4.8-10.8)
[2020-05-13 05:17] LABS: CALC OSMOLALITY 274 mosm/kg (275-300); CALCIUM 8.2 mg/dL (8.5-10.1); CARBON DIOXIDE 35.7 mmol/L (21.0-32.0); CHLORIDE - SERUM 103 mmol/L (98-107); CREATININE - SERUM 0.5 mg/dL (0.6-1.3); POTASSIUM - SERUM 3.5 mmol/L (3.5-5.1); SODIUM 140 mmol/L (136-145); UREA NITROGEN 4 mg/dL (7-18); eGFR NON AFRICAN AMERICAN > 90 mL/min (90-120)
[2020-05-13 05:20] LABS: GLUCOSE 82 mg/dL (74-106)
[2020-05-13 05:26] LABS: HEMOGLOBIN 7.3 g/dL (13.5-17.5)
--- NOTE | 2020-05-13 06:39 | NUR ---
NOTIFIED DR DUTTON OF CRITICAL HGB AND OF HCT. NEW ORDERS NOTED TO TYPE AND CROSSMATCH FOR 2 UNITS AND GIVE. ALSO TO GIVE LASIX 20MG IV BETWEEN UNITS.
[2020-05-13 09:07] VITALS: BP 129/61
--- NOTE | 2020-05-13 09:31 | NUR ---
ALERT AND ORIENTED WITH DEBRA INTACT TO RT. AKA W/O ANY S/S OF INFECTION. REFUSES TO LEAVE DRESSING ON AT THIS TIME. 1ST UNIT PRBC'S STARTED TO LEFT F/A WITH 20G W/O ANY S/S OF REACTION NOTED. ENCOURAGED TO USE CALL LIGHT FOR ASSSIT WITH FALL PRECAUTIONS IN PLACE.
--- NOTE | 2020-05-13 12:05 | NUR ---
FINISHED 1ST UNIT PRBC'S AND FLUSHED WITH 100CC NACL WITH LASIX GIVEN IVP PRIOR TO SECOND UNIT TO INFUSE. NO S/S OF DISTRESS OR PERIPHERAL EDEMA. ENCOURAGED TO USE CALL LIGHT FOR ASSSIT WITH NO S/S OF REACTION NOTED.
--- NOTE | 2020-05-13 15:00 | NUR ---
FINISHED 2ND UNIT PRBC'S WITH PATINET S/L. DEBRA CLEANED TO RT. AKA WITH DRESSING APPLIED WITH NO S/S OF INFECTION NOTED.
--- NOTE | 2020-05-13 16:05 | NUR ---
OT NOTE: ATTEMPTED TO SEE PT IN AM, HOWEVER, RECEIVING BLOOD. PT SEEN IN PM.. SOMEWHAT CONFUSED. ASKING IF HE COULD GET AN ELECTRIC SCOOTER SO THAT HE COULD FIND HIS WAY BACK DOWN TO GROUP HOME. PT ABLE TO PERFORM BED MOB WITH MIN ASSIST FOR ROLLING .. SIMPLE GROOMING WITH SET UP.. PT ASKING IF IT WILL BE THIS WEEK WHEN HE GETS PROSTHESIS, ALTHOUGH HE WAS EDUCATED ON THIS SEVERAL TIMES YESTERDAY. EXPLAINED AGAIN THAT IT WOULD BE A WHILE BEFORE HE WOULD BE MEASURED FOR PROSTHESIS HE STILL HAS DEBRA. JD TSANG, OTR/L [phone]
[2020-05-13 16:12] VITALS: BP 151/76
--- NOTE | 2020-05-13 19:15 | NUR ---
LYING IN BED. ALERT AND ORIENTED. EATING SNACKS AND REQUESTING MORE. REPORTS PAIN IN RT STUMP 9. MEDICATED WITH PERCOCET. DRSG NOTED TO RT AKA. RESP IRREG. O2 @ 3.5L/NC. SALINE LOCK NOTED TO LT FOREARM. BED ALARM ON FOR PT SAFETY. TELEMETRY SHOWS SR WITH RATE OF 69. CL IN REACH.
[2020-05-13 20:00] VITALS: BP 151/69
--- NOTE | 2020-05-13 23:00 | NUR ---
RESTING IN BED WITH EYES CLOSED. RESP NONLABORED. NO DISTRESS. CL IN REACH.
--- NOTE | 2020-05-14 02:25 | NUR ---
MEDICATED WITH PERCOCET FOR C/O RT LEG PAIN. CL IN REACH.
[2020-05-14 04:00] VITALS: BP 137/75
--- NOTE | 2020-05-14 04:38 | NUR ---
RESTING QUIETLY WITH EYES CLOSED. RESP NONLABORED. NO DISTRESS. CL IN REACH.
--- NOTE | 2020-05-14 05:32 | NUR ---
LYING IN BED WATCHING TV. BRIEF IS CLEAN AND DRY. USES URINAL BUT SPILLS IT AT TIMES. DENIES NEEDS. CL IN REACH.
[2020-05-14 06:20] LABS: BASOPHILS 0.3 % (0-2); EOSINOPHILS 3.6 % (0-7); IMMATURE GRANULOCYTES 1.1 % (0-5); LYMPHOCYTES 15.2 % (15-50); MCH 28.5 pg (26.0-34.0); MCHC 31.4 g/dL (31.0-37.0); MCV 90.8 fL (80.0-100.0); MEAN PLATELET VOLUME 10.7 fL (7.4-10.4); MONOCYTES 9.4 % (2-11); NEUTROPHILS 70.4 % (40-80); PLATELET COUNT 267 10x3/uL (130-400); RDW 16.2 % (11.5-14.5); WBC 7.2 10x3/uL (4.8-10.8)
[2020-05-14 06:27] LABS: HEMATOCRIT 30.6 % (42.0-54.0); HEMOGLOBIN 9.6 g/dL (13.5-17.5); RBC 3.37 10x6/uL (4.20-6.10)
[2020-05-14 06:30] LABS: CALC OSMOLALITY 281 mosm/kg (275-300); CALCIUM 8.5 mg/dL (8.5-10.1); CARBON DIOXIDE 35.1 mmol/L (21.0-32.0); CHLORIDE - SERUM 101 mmol/L (98-107); CREATININE - SERUM 0.5 mg/dL (0.6-1.3); GLUCOSE 92 mg/dL (74-106); POTASSIUM - SERUM 3.4 mmol/L (3.5-5.1); SODIUM 143 mmol/L (136-145); UREA NITROGEN 5 mg/dL (7-18); eGFR NON AFRICAN AMERICAN > 90 mL/min (90-120)
--- NOTE | 2020-05-14 07:43 | MORECARE ---
CASE MANAGEMENT DISCHARGE SUMMARY PATIENT: RANDY HOLCOMB UNIT: [id number] ADM DATE: 05/07/20 AGE: 64 : 53 SEX: M ROOM/BED: D.2209 AUTHOR: ELDER FAGAN PHYSICIAN: REFERRING PHYSICIAN: BECCA DUTTON MD DATE OF SERVICE: 05/14/20 Discharge Plan Patient Name: RANDY HOLCOMB [facility] [facility] 1955 Planned Disposition: Fdc Facility Anticipated Discharge Date: Discharge Date: Expected LOS: Initial Reviewer: [email or web address] Initial Review Date: 05/07/2020 Generated: 05/14/20 8:43 am Comments DCP- Discharge Planning Updated by [email or web address]: Cheyenne Aleman on 05/14/20 6:[address] I HAVE SENT A REFERRAL TO THE [facility] ON 05/12/20 THEY ARE STILL REVIEWING ( OF 05/13/20) THIS AM I SENT A REFERRAL TO [facility] ( [facility]) I WILL REACH OUT TO THEM WHEN THE OFFICE OPENS PER ADELAIDA ( [facility] NOTES) THEY WERE ONE WHO WAS REVIEWING HIM WHEN HE WAS DOWN THERE. CM WILL CONTINUE TO FOLLOW AND ASSIST DCP- Discharge Planning Updated by [email or web address]: Cheyenne Aleman on 05/12/20 12:[address] PER ADELAIDA THE CONSTRUCTION PLUMBER HE IS GOOD TO GO TO ANY SKILLED NURSING, SHE THOUGHT IT WOULD BE BEST IF HE STAYED IN WITH HIS DR'S ARE. I HAVE SENT THE REFERRAL TO THE [facility] External Providers External Provider: [facility] Next Contact Date: Service Request Date: Service Type: Resolution: Reviewer: Comments: Last DP export: 05/12/20 12:28 pm Patient Name: RANDY HOLCOMB Page [phone] at 0743 All edits/amendments must be made on the electronic document DICTATION DATE: 05/14/2043 BUFFERER: PETE 05/14/20 0743 RPT#: [id number] DC DATE: STATUS: ADM IN [facility] [address] [place] [address] END OF REPORT
[2020-05-14 09:10] VITALS: BP 142/67
[2020-05-14 12:53] VITALS: BP 158/72
--- NOTE | 2020-05-14 13:17 | NUR ---
Nutrition follow-up: Visited with pt during rounds. Pt with good appetite and eating ~75% of meals Obtained food preferences Labs reviewed Wt: 155# Will provide food choices and honor pts food preferences. RDN following.
--- NOTE | 2020-05-14 13:55 | NUR ---
OT NOTE: JAVIER INFORMED THIS OT THAT SHE AND PHYSICAL THERAPY HAD ASSISTED PT UP TO CHAIR. REPORTED THAT HE WAS UNABLE TO HOP WITH WALKER, BUT SLID FOOT AROUND AND REQUIRED EXTENSIVE ASSIST FOR TRANSFER. APPROX 30 MIN LATER, PROMOTIONS SPECIALIST INFORMED THERAPIST THAT PT IS WANTING TO GO BACK TO BED. ENTERED PTS ROOM AND PT STATED THAT HE COULD NOT SIT UP ANY LONGER.. STATED THAT HIS R STUMP WAS HURTING. ATTEMPTED TO POSITION PT MORE COMFORTABLY BUT HE ONLY WANTED TO GO BACK TO BED. PT STATED THAT IF HE HAD AN ELECTRIC WC HE MIGHT FEEL BETTER BECAUSE HE FELT SURE THAT HE COULD DRIVE ONE OF THESE VERY WELL. (PT HAS NEVER USED AN ELEC WC BUT CONTINUALLY REQUESTING ONE)..PT ALSO CONT TO TALK ABOUT NEEDING TO HURRY AND GET HIS PROSTHESIS SO THAT HE CAN START WALKING AGAIN. THIS HAS BEEN EXPLAINED TO HIM DAILY.. EDUCATED PT ON UE EXS TO PERFORM WHILE IN BED. EXPLAINED THAT HE WOULD NEED TO BE ABLE TO SIT UP FOR LONGER PERIOD OR HE WOULD NOT BE ABLE TO GO INTO REHAB. PT STATED THAT HE DIDNT NEED REHAB IF HE HAD ELEC WC. ASSISTED PT BACK TO BED WITH WALKER AND MOD ASSIST X 2.. PT ABLE TO TAKE ABOUT 4 HOPS AND EXHIBITED IMPROVED WT BEARING THROUGH UES. CONTINUAL EDUCATION ON WALKER MGMT AND KEEPING WALKER CLOSE TO HIM DURING TRANSFERS. JD TSANG, OTR/L [phone]
--- NOTE | 2020-05-14 16:54 | NUR ---
OT NOTE: PT EXHIBITED DECREASED SAFETY AWARENESS. PT COMPLETED SUPINE TO SIT WITH MIN/MOD A. PT COMPLETED SIT TO STAND WITH MIN/MOD A. PT COMPLETED BED TO CHAIR TSF WITH MIN/MOD A. PT CUED TO "HOP" WITH WALKER FOR PIVOT. PT SLIDE FOOT INSTEAD. PT DID NOT ATTEMPT TO HOP. PT COMPLETED LINDEN SOCK WITH MIN A. PT EDUCATED ON WALKER MANAGEMENT WITH TSF. PT EXHIBITED SELF LIMITING BEHAVIOR AND REQUIRED VERBAL CUES FOR INCREASED PARTICIPATION. [phone] THANK YOU,YAYA ARNETT
[2020-05-14 17:05] VITALS: BP 142/64
--- NOTE | 2020-05-14 19:05 | NUR ---
SITTING UP IN BED YELLING OUT "NURSE". STAFF APPROACHED PT AND ENCOURAGED USE OF CALL LIGHT. IRRITABLE. STATES HE NEEDS HIS PAIN MEDS. INFORMED THAT PAIN MED WAS DUE AT 1999. HE VERBALIZED UNDERSTANDING. DSRG NOTED TO RT AKA. SLIGHT REDNESS NOTED AROUND STUMP. INCONT OF URINE AT TIMES AND WEARS BRIEF. BRIEF CHANGED AT THIS TIME. ALSO USES URINAL. SALINE LOCK NOTED TO LT FOREARM. 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 RESP IRREG. O2 @ 3L/NC. SR ELEVATED X2. CL IN REACH.
[2020-05-14 20:00] VITALS: BP 133/76
--- NOTE | 2020-05-14 20:00 | NUR ---
MEDICATED WITH PERCOCET FOR C/O RT AKA PAIN. CL IN REACH.
--- NOTE | 2020-05-15 01:08 | NUR ---
MEDICATED WITH PERCOCET FOR C/O PAIN. REQUESTED ICE CREAM. CL IN REACH.
[2020-05-15 04:00] VITALS: BP 151/71
--- NOTE | 2020-05-15 07:46 | NUR ---
AKERT AND ORIENTED X3. DRESSING DRY AND INTACT TO RT. AKA. DENIES ANY PAIN OR DISCOMFORT AT THIS TIME. IV S/L TO LEFT F/A WITH NO S/S OF INFECTION/INFILTRATION. FALL PRECAUTIONS IN PLACE AND ENCOURAGED TO USE CALL LLIGHT FOR ASSSIT.
[2020-05-15 09:36] VITALS: BP 142/73
--- NOTE | 2020-05-15 12:47 | NUR ---
OT NOTE: PT INITIALLY NOT WANTING TO GET UP.. EXPLAINED TO PT THAT HE WOULD HAVE TO TOLERATE BEING UP FOR SEVERAL HOURS AT A TIME SO THAT HE COULD BE ACCEPTED INTO REHAB. DR BRISCOE THEN CAME IN AND INDICATED THAT IT WAS NECESSARY FOR PT TO BE UP OUT OF BED. PT AGREEABLE AT THIS TIME. BED MOB WITH EXT TIME WITHOUT ASSIST; SITTING BALANCE ACT ON EOB; SIMPLE GROOMING TASKS WHILE ON EOB; SIT TO STAND WITH MOD ASSIST WITH USE OF WALKER. PT CONT WITH DECREASED SAFETY AWARENESS HE WAS WANTING TO JUST SCOOT OVER TO CHAIR. EXPLAINED THAT THIS WOULD BE DIFFICULT AT THIS TIME DUE TO DECREASED UE STRENGTH. ABLE TO TAKE A FEW HOPS WITH MOD ASSIST; TRANSFER TO CHAIR WITH MOD ASSIST. INSTRUCTED ON EXS WHICH COULD BE PERFORMED FROM CHAIR LEVEL. JD TSANG, OTR/L [phone]
[2020-05-15 12:51] VITALS: BP 111/55
--- NOTE | 2020-05-15 13:09 | MORECARE ---
CASE MANAGEMENT DISCHARGE SUMMARY PATIENT: RANDY HOLCOMB UNIT: [id number] ADM DATE: 05/07/20 AGE: 64 : 53 SEX: M ROOM/BED: D.2209 AUTHOR: ELDER FAGAN PHYSICIAN: REFERRING PHYSICIAN: BECCA DUTTON MD DATE OF SERVICE: 05/15/20 Discharge Plan Patient Name: RANDY HOLCOMB Facility: [facility]:[place] : 1955 Planned Disposition: Detention Facility Anticipated Discharge Date: Discharge Date: Expected LOS: Initial Reviewer: [email or web address] Initial Review Date: 05/07/2020 Generated: 05/15/20 2:08 pm Comments DCP- Discharge Planning Updated by [email or web address]: Cheyenne Aleman on 05/15/20 12:[address] REFERRAL SENT TO [facility] AND I SPOKE WITH SOLA EDWARDS SHE WILL GET BACK WITH ME SHE ALSO REPRESENTS [facility] SHE WILL CALL ME WITH A DETERMINATION DCP- Discharge Planning Updated by [email or web address]: Cheyenne Aleman on 05/14/20 6:[address] I HAVE SENT A REFERRAL [facility] [place] ON 05/12/20 THEY ARE STILL REVIEWING ( OF 05/13/20) THIS AM I SENT A REFERRAL TO [facility] ( [facility]) I WILL REACH OUT TO THEM WHEN THE OFFICE OPENS PER ADELAIDA ( JAIL NOTES) THEY WERE ONE WHO WAS REVIEWING HIM WHEN HE WAS DOWN THERE. CM WILL CONTINUE TO FOLLOW AND ASSIST DCP- Discharge Planning Updated by [email or web address]: Cheyenne Aleman on 05/12/20 12:[address] PER ADELAIDA THE LEGAL DOCUMENT SPECIALIST HE IS GOOD TO GO TO ANY GROUP HOME, SHE THOUGHT IT WOULD BE BEST IF HE STAYED IN WITH HIS DR'S ARE. I HAVE SENT THE REFERRAL TO THE [facility] External Providers External Provider: [facility] Next Contact Date: Service Request Date: Service Type: Resolution: Reviewer: Comments: Last DP export: 05/14/20 6:43 am Patient Name: RANDY HOLCOMB Page [phone] at 1309 All edits/amendments must be made on the electronic document DICTATION DATE: 05/15/20 1309 INTELLIGENCE INTERN: PETE 05/15/20 1309 RPT#: [id number] DC DATE: STATUS: ADM IN [facility] [address] [place] [address] END OF REPORT
--- NOTE | 2020-05-15 14:04 | NUR ---
OT NOTE: PT TOLERATED STAYING UP IN CHAIR FOR APPROX 3 HRS.. PT PERFORMED WELL WITH FEEDING AND UPPER BODY TASKS. EDUCATED ON TECH FOR SCOOTING TOWARDS FROM OF CHAIR PRIOR TO SIT TO STAND TO ALLOW FOR INCREASED EASE IN STANDING. CONT TO RECOMMEND IP REHAB PT IS WEAK IN R LE AND B UES.. CONSTANT CUES TO WT BEAR THROUGH ARMS, HOWEVER, PT UNABLE TO EXTEND ARMS WITH USE OF WALKER. BED MOB WITH SPV WITH EXT TIME. JD TSANG, OTR/L [phone]
[2020-05-15 17:53] VITALS: BP 128/69
[2020-05-15 20:00] VITALS: BP 148/71
[2020-05-16 04:00] VITALS: BP 145/74
--- NOTE | 2020-05-16 04:05 | NUR ---
ASSESSED AT THE BEGINNING OF THE SHIFT. PT IS ALERT AND ORIENTED, ABLE TO VERBALIZE NEEDS. HE HAS A CLEN DRY DRESSING ON HIS AKA AND IT IS PROPPED UP ON A PILLOW. NO DRAINAGE NOTED. PAIN MED HAS ONLY BEEN GIVEN ONCE WHEN HE ASKED AND AT THIS TIME HE IS ASLEEP. HE REMAINS IN CONTACT ISOLATION AND HAS O2 AT 3 LITERS PER N/C.HE IS VERY GOOD ABOUT USING A URINAL TO VOID.
--- NOTE | 2020-05-16 08:18 | NUR ---
PT RESTING IN BED, O2 @ 3L NC IN PLACE. REPORTS PAIN 9/10 AT THIS TIME, BUT DENIES WISHES FOR PAIN MEDICATION AT THIS TIME. SALINE LOC TO LEFT FOREARM, SITE WITHOUT REDNESS OR EDEMA. RIGHT AKA NOTED WITH DRESSING C/D/I AT THIS TIME. DENIES FURTHER NEEDS AT THIS TIME. CL WITHIN REACH. ENCOURAGED TO CALL WITH NEEDS. CONTINUE POC
[2020-05-16 09:43] VITALS: BP 142/73
--- NOTE | 2020-05-16 10:22 | MORECARE ---
CASE MANAGEMENT DISCHARGE SUMMARY PATIENT: RANDY HOLCOMB UNIT: [id number] ADM DATE: 05/07/20 AGE: 64 : 53 SEX: M ROOM/BED: D.2209 AUTHOR: RYLAN,DOC PHYSICIAN: REFERRING PHYSICIAN: BECCA DUTTON MD DATE OF SERVICE: 05/16/20 Discharge Plan Patient Name: RANDY HOLCOMB Facility: [facility]:[place] : 1955 Planned Disposition: Shelter Facility Anticipated Discharge Date: Discharge Date: Expected LOS: Initial Reviewer: [email or web address] Initial Review Date: 05/07/2020 Generated: 05/16/20 11:21 am Comments DCP- Discharge Planning Updated by [email or web address]: Cheyenne Aleman on 05/16/20 9:[address] I CALLED [facility] AND SPOKE WITH CHILO TO LET HER KNOW PER DR DUTTON THIS WILL TURN INTO A MANNEQUIN MOLDER PLACEMENT CHILO WAS GOING TO SPEAK WITH THE PATIENT ABOUT GETTING FINICIAL INFORMATION DCP- Discharge Planning Updated by [id number]: Cheyenne Aleman on 05/15/20 12:[address] REFERRAL SENT TO [facility] AND I SPOKE WITH SOLA EDWARDS SHE WILL GET BACK WITH ME SHE ALSO REPRESENTS [facility] SHE WILL CALL ME WITH A DETERMINATION DCP- Discharge Planning Updated by [email or web address]: Cheyenne Aleman on 05/14/20 6:[address] I HAVE SENT A REFERRAL TO THE [facility] ON 05/12/20 THEY ARE STILL REVIEWING ( OF 05/13/20) THIS AM I SENT A REFERRAL TO [facility] ( [facility]) I WILL REACH OUT TO THEM WHEN THE OFFICE OPENS PER ADELAIDA ( [facility] NOTES) THEY WERE ONE WHO WAS REVIEWING HIM WHEN HE WAS DOWN THERE. CM WILL CONTINUE TO FOLLOW AND ASSIST DCP- Discharge Planning Updated by [email or web address]: Cheyenne Aleman on 05/12/20 12:[address] PER ADELAIDA THE POWER SHOVEL ENGINEER HE IS GOOD TO GO TO ANY PRISON, SHE THOUGHT IT WOULD BE BEST IF HE STAYED IN WITH HIS DR'S ARE. I HAVE SENT THE REFERRAL TO THE [facility] [facility] Last DP export: 05/15/20 12:09 pm Patient Name: RANDY HOLCOMB Page [id number] at 1022 All edits/amendments must be made on the electronic document DICTATION DATE: 05/16/20 1021 EVP MANAGING DIRECTOR: PETE 05/16/20 1021 RPT#: [id number] DC DATE: STATUS: ADM [place] [address] [place] [address] END OF REPORT
--- NOTE | 2020-05-16 12:14 | NUR ---
OT NOTE: EDUCATION FOR IMPROVING SUPINE TO SIT..ATTEMPTED TRAINING PT TO PERFORM FROM SIDELIEING VS LONG SITTING THEN PIVOTING AROUND. PT CONTINUES TO HAVE DIFFICULTY WITH BOTH. ONCE PT IS UP TO EOB, HE IS ABLE TO SCOOT TO EDGE WITHOUT ASSIST. STATIC SITTING BALANCE IS GOOD; DYNAMIC IS FAIR; ABLE TO WASH FACE, HANDS, CHEST WITH CLOTH AND SET UP..REQUIRES EXT ASSIST WITH BACK AND PERINEAL AREA. ABLE TO USE URINAL INDEP, HOWEVER, SPILLED INTO BED. MAX ASSIST WITH DONNING CLEAN BRIEF. SIT TO STAND WITH MOD ASSIST X 2; MIN/MOD ASSIST FOR TRANSFER FROM BED TO CHAIR WITH WALKER.. EDUCATED IN UE EXS INCLUDING CHAIR PUSH UPS TO IMPROVE TRICEP STRENGTH TO ASSIST WITH WALKER MGMT JD TSANG, OTR/L [phone]
[2020-05-16 13:29] VITALS: BP 128/65
--- NOTE | 2020-05-16 15:28 | NUR ---
OT NOTE: PT COMPLETED SIT TO STAND WITH MIN/MOD A. PT REQUIRED TOTAL A WITH UNDERGARMENT MANAGEMENT. PT COMPLETED CHAIR TO BED TSF WITH WALKER. PT INSTRUCTED ON FOOT PLACEMENT AND TO USE UE TO COMPENSATE. PT REQUIRED MIN A WITH TSF. PT COMPLETED UE AROM WITH FUNCTIONAL TASKS AND WALKER MANAGEMENT. [phone] THANK YOU,YAYA ARNETT
[2020-05-16 17:17] VITALS: BP 140/73
[2020-05-16 19:44] VITALS: BP 141/72
--- NOTE | 2020-05-16 21:35 | NUR ---
PT CASINO CASHIER MANAGER LIGHT AT SHIFT CHANGE REQUESTED PAIN MEDICATION. ADMINISTERED PRN PAIN MEDICATION WITH PM MEDS. PT HAD 800 IN URINAL. NO OTHER NEEDS VOICED, CL IN REACH BED IN LOW POSITION, CONTINUE WITH PLAN OF CARE
[2020-05-17 00:33] VITALS: BP 127/70
--- NOTE | 2020-05-17 00:43 | NUR ---
PT ON CL FOR PAIN MEDICATION, ADMINISTERED PRN PAIN MEDICATION, NO OTHER NEEDS AT THIS TIME. CONTINUE WITH PLAN OF CARE
[2020-05-17 04:06] VITALS: BP 124/67
--- NOTE | 2020-05-17 04:36 | NUR ---
I have reviewed this patient and I concur with the Shift Assessment completed by the Licensed Practical Nurse today this shift.
[2020-05-17 09:49] VITALS: BP 131/65
--- NOTE | 2020-05-17 09:56 | NUR ---
PT ALERT X 4. BREATH SOUNDS CLEAR BILAT. PACEMAKER TO RIGHT CHEST. IV TO LEFT FOREARM, SALINE LOCKED. RIGHT AKA, DRESSING CDI, NO REDDNESS OR SWELLING NOTED. SORES TO LEFT HEEL, HEEL PROTECTOR PLACED. BED LOW, CALL LIGHT IN REACH. NO OTHER NEEDS AT THIS TIME.
[2020-05-17 13:58] VITALS: BP 108/60
[2020-05-17 18:04] VITALS: BP 133/69
--- NOTE | 2020-05-17 19:20 | NUR ---
LYING IN BED WATCHING TV. ALERT AND ORIENTED X4 BUT FORGETFUL, CONFUSED AT TIMES. RESP IRREG. O2 @ 4LNC. DRSG NOTED TO RT AKA IS C/D/I AND ELEVATED ON PILLOW. LT HEEL IS DRY, SCALY WITH SCAB NOTED. HEEL PROTECTOR ON LT HEEL. BED ALARM IN USE. SALINE LOCK NOTED TO LT FOREARM. RATES PAIN IN RT AKA 9. SR ELEVATED X2. CL IN REACH.
[2020-05-17 20:56] VITALS: BP 131/77
--- NOTE | 2020-05-17 21:30 | NUR ---
MEDICATED WITH NORCO FOR C/O PAIN IN RT AKA RATING 9. CL IN REACH. EATING SNACK OF ICE CREAM AND DIET SODA
--- NOTE | 2020-05-17 22:30 | NUR ---
CONFUSED. HAS BEEN ASLEEP AND WOKE UP ASKING FOR PAIN MED. THINKS HE DIDNT RECEIVE IT. INFORMED PT THAT HE GOT IT AN HOUR AGO AND ITS EVERY 4 HOURS NEEDED. PT HAS DONE THIS OFTEN.
[2020-05-18 00:01] VITALS: BP 130/66
[2020-05-18 08:43] VITALS: BP 135/69
[2020-05-18 13:17] VITALS: BP 102/58
[2020-05-18 18:52] VITALS: BP 127/60
--- NOTE | 2020-05-18 19:20 | NUR ---
LYING IN BED EATING SNACK. ALERT AND ORIENTED. CONFUSED AT TIMES. C/O PAIN IN RT AKA RATING 9. SCABS NOTED TO LT HEEL WITH HEEL PROTECTOR IN USE. O2 @ 4L/NC. RESP IRREG. NONPROD COUGH NOTED. SCLERA OF RT EYE IS RED. DRSG NOTED TO RT AKA IS C/D/I. SALINE LOCK NOTED TO LT FOREARM. PT IN CONTACT ISO FOR MRSA. SR ELEVATED X2. CL IN REACH.
--- NOTE | 2020-05-18 20:50 | NUR ---
MEDICATED WITH PERCOCET FOR C/O RT AKA PAIN RATING 9. CL IN REACH.
[2020-05-18 22:01] VITALS: BP 125/66
[2020-05-19 03:55] VITALS: BP 102/60
--- NOTE | 2020-05-19 05:05 | NUR ---
MEDICATED WITH PERCOCET FOR C/O PAIN IN RLE RATING 9. ATE SANDWICH AT THIS TIME. CL IN REACH.
[2020-05-19 09:10] VITALS: BP 118/64
--- NOTE | 2020-05-19 10:41 | MORECARE ---
CASE MANAGEMENT DISCHARGE SUMMARY PATIENT: RANDY HOLCOMB UNIT: [id number] ADM DATE: 05/07/20 AGE: 64 : 53 SEX: M ROOM/BED: D.2209 AUTHOR: RYLAN,DOC PHYSICIAN: REFERRING PHYSICIAN: BECCA DUTTON MD DATE OF SERVICE: 05/19/20 Discharge Plan Patient Name: RANDY HOLCOMB Facility: [facility]:[place] : 1955 Planned Disposition: Senior Care Facility Anticipated Discharge Date: Discharge Date: Expected LOS: Initial Reviewer: [email or web address] Initial Review Date: 05/07/2020 Generated: 05/19/20 11:40 am Comments DCP- Discharge Planning Updated by [email or web address]: Cheyenne Aleman on 05/19/20 9:[address] called [facility] to get update with Chilo about placement, left message with her to call me back. I also reached out to Sola Edwards to see if she could assist. Sola Edwards stated that he is approved clinically, but just needed financial paper work. CM will continue to follow and assist as needed DCP- Discharge Planning Updated by [email or web address]: Cheyenne Aleman on 05/16/20 9:[address] I CALLED [facility] AND SPOKE WITH CHILO TO LET HER KNOW PER DR DUTTON THIS WILL TURN INTO A CASH TELLER PLACEMENT CHILO WAS GOING TO SPEAK WITH THE PATIENT ABOUT GETTING FINICIAL INFORMATION DCP- Discharge Planning Updated by [id number]: Cheyenne Aleman on 05/15/20 12:[address] REFERRAL SENT TO [facility] AND I SPOKE WITH SOLA EDWARDS SHE WILL GET BACK WITH ME SHE ALSO REPRESENTS [facility] SHE WILL CALL ME WITH A DETERMINATION DCP- Discharge Planning Updated by [email or web address]: Cheyenne Aleman on 05/14/20 6:[address] I HAVE SENT A REFERRAL TO [facility] ON 05/12/20 THEY ARE STILL REVIEWING ( OF 05/13/20) THIS AM I SENT A REFERRAL TO [facility] ( [facility]) I WILL REACH OUT TO THEM WHEN THE OFFICE OPENS PER ADELAIDA ( HALF-WAY NOTES) THEY WERE ONE WHO WAS REVIEWING HIM WHEN HE WAS DOWN THERE. CM WILL CONTINUE TO FOLLOW AND ASSIST DCP- Discharge Planning Updated by [email or web address]: Cheyenne Aleman on 05/12/20 12:[address] PER ADELAIDA THE PERSONNEL ADVISER HE IS GOOD TO GO TO ANY CUSTODIAL, SHE THOUGHT IT WOULD BE BEST IF HE STAYED IN HS WITH HIS DR'S ARE. I HAVE SENT THE REFERRAL TO THE [facility] Last DP export: 05/16/20 9:22 am Patient Name: RANDY HOLCOMB Page [id number] at 1041 All edits/amendments must be made on the electronic document DICTATION DATE: 05/19/20 1040 VENEER PRESS OPERATOR: PETE 05/19/20 1040 RPT#: [id number] DC DATE: STATUS: ADM IN [facility] [address] [place] [address] END OF REPORT
--- NOTE | 2020-05-19 10:45 | NUR ---
PATIENT CHANGED AT THIS TIME. HAD BM. PATIENT EXCORIATED ON BUTTOCKS. BOUDREUXS APPLIED. REMINDED PATIENT TO STAY ON HIS SIDE AND NOT TO LAY ON HIS BACK SO MUCH. VERBALIZED UNDERSTANDING. CALL LIGHT WITHIN REACH.
[2020-05-19 11:54] VITALS: BP 101/60
--- NOTE | 2020-05-19 15:21 | MORECARE ---
CASE MANAGEMENT DISCHARGE SUMMARY PATIENT: RANDY HOLCOMB UNIT: [id number] ADM DATE: 05/07/20 AGE: 64 : 53 SEX: M ROOM/BED: D.2209 AUTHOR: RYLAN,DOC PHYSICIAN: REFERRING PHYSICIAN: BECCA DUTTON MD DATE OF SERVICE: 05/19/20 Discharge Plan Patient Name: RANDY HOLCOMB Facility: [facility]:[place] : 1955 Planned Disposition: Prison Facility Anticipated Discharge Date: Discharge Date: Expected LOS: Initial Reviewer: [email or web address] Initial Review Date: 05/07/2020 Generated: 05/19/20 4:20 pm Comments DCP- Discharge Planning Updated by [id number]: Cheyenne Aleman on 05/19/20 2:[address] CHILO WITH [facility] WAS CALLING PATIENT DCP- Discharge Planning Updated by [email or web address]: Cheyenne Aleman on 05/19/20 9:[address] [facility] to get update with Chilo about placement, left message with her to call me back. I also reached out to Sola Edwards to see if she could assist. Sola Edwards stated that he is approved clinically, but just needed financial paper work. CM will continue to follow and assist as needed DCP- Discharge Planning Updated by [email or web address]: Cheyenne Aleman on 05/16/20 9:[address] I CALLED [facility] AND SPOKE WITH CHILO TO LET HER KNOW PER DR DUTTON THIS WILL TURN INTO A GROUP HOME PLACEMENT CHILO WAS GOING TO SPEAK WITH THE PATIENT ABOUT GETTING FINICIAL INFORMATION DCP- Discharge Planning Updated by [id number]: Cheyenne Aleman on 05/15/20 12:[address] REFERRAL SENT TO [facility] AND I SPOKE WITH SOLA EDWARDS SHE WILL GET BACK WITH ME SHE ALSO REPRESENTS [facility] SHE WILL CALL ME WITH A DETERMINATION DCP- Discharge Planning Updated by [email or web address]: Cheyenne Aleman on 05/14/20 6:[address] I HAVE SENT A REFERRAL TO THE [facility] ON 05/12/20 THEY ARE STILL REVIEWING ( OF 05/13/20) THIS AM I SENT A REFERRAL TO [facility] ( [facility]) I WILL REACH OUT TO THEM WHEN THE OFFICE OPENS PER ADELAIDA ( SKILLED NURSING NOTES) THEY WERE ONE WHO WAS REVIEWING HIM WHEN HE WAS DOWN THERE. CM WILL CONTINUE TO FOLLOW AND ASSIST DCP- Discharge Planning Updated by [id number]: Cheyenne Aleman on 05/12/20 12:[address] PER ADELAIDA THE ALARM SIGNALER HE IS GOOD TO GO TO ANY HALF-WAY, SHE THOUGHT IT WOULD BE BEST IF HE STAYED IN WITH HIS DR'S ARE. I HAVE SENT THE REFERRAL TO THE [facility] Last DP export: 05/19/20 9:41 a Patient Name: RANDY HOLCOMB Page [phone] at 1521 All edits/amendments must be made on the electronic document DICTATION DATE: 05/19/20 152 PETROLEUM ANALYST: PTEE 05/19/201519 RPT#: [id number] DC DATE: STATUS: ADM IN [facility] [address] [place] [address] END OF REPORT
[2020-05-19 16:22] VITALS: BP 123/64
--- NOTE | 2020-05-19 18:45 | NUR ---
PATIENT IN BED WITH EYES CLOSED RESTING QUIETLY. IV INTACT. NO COMPLAINTS. CALL LIGHT WITHIN REACH.
[2020-05-19 20:00] VITALS: BP 129/68
--- NOTE | 2020-05-19 22:19 | NUR ---
OT NOTE: PT REQUIRED MOD/MAX A X2 FOR SUPINE TO SIT. PT COMPLETED SIT TO STAND WITH MOD A X2. PT COMPLETED ADL MOB WITH MAX A SECONDARY INABILITY TO COORDINATE LE. PT REQUIRED EXTENSIVE CUES TO SEQUENCE STEPPING. [phone] NOHEMI ROW[place] COTA
--- NOTE | 2020-05-19 22:33 | NUR ---
OT NOTE:(AM) PT COMPLETED SUPINE TO SIT WITH MIN A. PT COMPLETED SIT TO STAND WITH MIN A. PT COMPLETED ADL MOB WITH RW REQUIRED MIN A. PT COMPLETED UB HYGIENE WITH SETUP. (PM) PT COMPLETED UE AROM WITH FUNCTIONAL TASKS. PT COMPLETED FACE/HAND HYGIENE WITH SETUP. [phone] THANK YOU,YAYA ARNETT
--- NOTE | 2020-05-20 03:03 | NUR ---
RESTING IN BED WITH NO NEEDS AT THIS TIME. IV TO LEFT FOREARM. O2 AT 4 LETERS N/C. FSBS AC AND HS. R AKA WITH DEBRA INTACT AT SITE. PERCOCET 10 PRN FOR PAIN CONTROL. CALL LIGHT AND WATR IN REACH.
[2020-05-20 04:00] VITALS: BP 115/66
[2020-05-20 08:00] VITALS: BP 111/64
--- NOTE | 2020-05-20 13:16 | MORECARE ---
CASE MANAGEMENT DISCHARGE SUMMARY PATIENT: RANDY HOLCOMB UNIT: [id number] ADM DATE: 05/07/20 AGE: 64 : 53 SEX: M ROOM/BED: D.2209 AUTHOR: RYLAN,DOC PHYSICIAN: REFERRING PHYSICIAN: BECCA DUTTON MD DATE OF SERVICE: 05/20/20 Discharge Plan Patient Name: RANDY HOLCOMB Facility: [facility]:[place] : 1955 Planned Disposition: Assisted Facility Anticipated Discharge Date: Discharge Date: Expected LOS: Initial Reviewer: [email or web address] Initial Review Date: 05/07/2020 Generated: 05/20/20 2:15 pm Comments DCP- Discharge Planning Updated by [id number]: Cheyenne Aleman on 05/19/20 2:[address] CHILO WITH [facility] WAS CALLING PATIENT DCP- Discharge Planning Updated by [id number]: Cheyenne Aleman on 05/19/20 9:[address] called [facility] to get update with Chilo about placement, left message with her to call me back. I also reached out to Sola Edwards to see if she could assist. Sola Edwards stated that he is approved clinically, but just needed financial paper work. CM will continue to follow and assist as needed DCP- Discharge Planning Updated by [id number]: Cheyenne Aleman on 05/16/20 9:[address] I CALLED [facility] AND SPOKE WITH CHILO TO LET HER KNOW PER DR DUTTON THIS WILL TURN INTO A ASSISTED PLACEMENT CHILO WAS GOING TO SPEAK WITH THE PATIENT ABOUT GETTING FINICIAL INFORMATION DCP- Discharge Planning Updated by [id number]: Cheyenne Aleman on 05/15/20 12:[address] REFERRAL SENT TO [facility] AND I SPOKE WITH SOLA EDWARDS SHE WILL GET BACK WITH ME SHE ALSO REPRESENTS [facility] SHE WILL CALL ME WITH A DETERMINATION DCP- Discharge Planning Updated by [email or web address]: Cheyenne Aleman on 05/14/20 6:[address] I HAVE SENT A REFERRAL TO [facility] ON 05/12/20 THEY ARE STILL REVIEWING ( OF 05/13/20) THIS AM I SENT A REFERRAL TO [facility] ( [facility]) I WILL REACH OUT TO THEM WHEN THE OFFICE OPENS PER ADELAIDA ( JAIL NOTES) THEY WERE ONE WHO WAS REVIEWING HIM WHEN HE WAS DOWN THERE. CM WILL CONTINUE TO FOLLOW AND ASSIST DCP- Discharge Planning Updated by [email or web address]: Cheyenne Aleman on 05/12/20 12:[address] PER ADELAIDA THE BUDGET COORDINATOR HE IS GOOD TO GO TO ANY SNF, SHE THOUGHT IT WOULD BE BEST IF HE STAYED IN WITH HIS DR'S ARE. I HAVE SENT THE REFERRAL TO THE [facility] Last DP export: 05/19/20 2:21 p Patient Name: RANDY HOLCOMB Page [phone] at 1316 All edits/amendments must be made on the electronic document DICTATION DATE: 05/20/20 131 CENTRIFUGAL DRIER OPERATOR: PETE 05/20/20 1315 RPT#: [id number] DC DATE: STATUS: ADM IN [facility] [address] [place] [address] END OF REPORT
--- NOTE | 2020-05-20 13:26 | MORECARE ---
CASE MANAGEMENT DISCHARGE SUMMARY PATIENT: RANDY HOLCOMB UNIT: [id number] ADM DATE: 05/07/20 AGE: 64 : 53 SEX: M ROOM/BED: D.2209 AUTHOR: RYLAN,DOC PHYSICIAN: REFERRING PHYSICIAN: BECCA DUTTON MD DATE OF SERVICE: 05/20/20 Discharge Plan Patient Name: RANDY HOLCOMB Facility: [facility]:[place] : 1955 Planned Disposition: Usp Facility Anticipated Discharge Date: Discharge Date: Expected LOS: Initial Reviewer: [email or web address] Initial Review Date: 05/07/2020 Generated: 05/20/20 2:25 pm Comments DCP- Discharge Planning Updated by [id number]: Cheyenne Aleman on 05/20/20 12:[address] CHECKED WITH [facility] ABOUT UPDATE ON ACCEPTANCE, SHE STATED THAT THEY ARE STILL WORKING ON FINANCIAL TO TAKE HIM. PATIENT STATED THAT HE GETS $900.00 AND SOMETHING EVERY MONTH FROM MEDICARE. THE PATIENT ALSO STATED THAT HIS CELL PHONE # IS [phone] DCP- Discharge Planning Updated by [email or web address]: Cheyenne Aleman on 05/19/20 2:[address] CHILO WITH [facility] WAS CALLING PATIENT DCP- Discharge Planning Updated by [id number]: Cheyenne Aleman on 05/19/20 9:[address] [facility] to get update with Chilo about placement, left message with her to call me back. I also reached out to Sola Edwards to see if she could assist. Sola Edwards stated that he is approved clinically, but just needed financial paper work. CM will continue to follow and assist as needed DCP- Discharge Planning Updated by [id number]: Cheyenne Aleman on 05/16/20 9:[address] I CALLED [facility] AND SPOKE WITH CHILO TO LET HER KNOW PER DR DUTTON THIS WILL TURN INTO A RESIDENTIAL PLACEMENT CHILO WAS GOING TO SPEAK WITH THE PATIENT ABOUT GETTING FINICIAL INFORMATION DCP- Discharge Planning Updated by [id number]: Cheyenne Aleman on 05/15/20 12:[address] REFERRAL SENT TO [facility] AND I SPOKE WITH SOLA EDWARDS SHE WILL GET BACK WITH ME SHE ALSO REPRESENTS [facility] SHE WILL CALL ME WITH A DETERMINATION DCP- Discharge Planning Updated by [email or web address]: Cheyenne Aleman on 05/14/20 6:[address] I HAVE SENT A REFERRAL TO [facility] ON 05/12/20 THEY ARE STILL REVIEWING ( OF 05/13/20) THIS AM I SENT A REFERRAL TO [facility] ( [facility]) I WILL REACH OUT TO THEM WHEN THE OFFICE OPENS PER ADELAIDA ( LONG-TERM NOTES) THEY WERE ONE WHO WAS REVIEWING HIM WHEN HE WAS DOWN THERE. CM WILL CONTINUE TO FOLLOW AND ASSIST DCP- Discharge Planning Updated by [id number]: Cheyenne Aleman on 05/12/20 12:[address] PER ADELAIDA THE RIDE ATTENDANT HE IS GOOD TO GO TO ANY LONGTERM, SHE THOUGHT IT WOULD BE BEST IF HE STAYED IN WITH HIS DR'S ARE. I HAVE SENT THE REFERRAL TO [facility] Last DP export: 05/20/20 12:16 p Patient Name: RANDY HOLCOMB Page [id number] at 1326 All edits/amendments must be made on the electronic document DICTATION DATE: 05/20/20 1325 COMPRESSOR OPERATOR PORTABLE: PETE 05/20/20 1325 RPT#: [id number] DC DATE: STATUS: ADM IN [facility] [address] [place] [address] END OF REPORT
[2020-05-20 13:31] VITALS: BP 107/58
--- NOTE | 2020-05-20 14:31 | NUR ---
Nutrition follow-up: Pt receiving a regular diet with po intake ~83% average of last 6 meals labs reviewed No new wt to assess; last wt: 55# +BM PO intake continues to be good. RDN following.
--- NOTE | 2020-05-20 15:07 | NUR ---
OT NOTE: BED MOB WITH SBA FOR SUPINE TO SIT; MOD ASSIST FOR SIT TO STAND; PERINEAL CARE WITH MAX ASSIST; ABLE TO LINDEN BRIEF WITH MIN ASSIST TO PULL UP TO THIGH AND MOD ASSIST FOR PULLING OVER HIPS; STANDING BALANCE IS FAIR.. STANDING TOLERANCE IS FAIR-.. TOLERATED APPROX 12-15 SECONDS OF STANDING. FREQ CUES TO STRAIGHTEN L KNEE WHILE IN STANDING AND BEAR MORE WT THROUGH ARMS WITH USE OF WALKER. JD TSANG, OTR/L
--- NOTE | 2020-05-20 16:08 | NUR ---
OT NOTE: PT COMPLETED SUPINE TO SIT WITH CGA/MIN A. PT COMPLETED SIT TO STAND WITH CGA. PT COMPLETED TSF WITH CGA. PT EDUCATED ON THE IMPORTANCE OF SITTING UP IN CHAIR. PT STATED HE CAN NOT SIT UP FOR 3 HOURS. PT ENCOURAGED TO PARTICIPATE TOLERATED TO INCREASE FUNCTIONAL INDEPENDENCE. PT COMPLETED WT BEARING IN UE WITH WALKER MANAGEMENT. PT REQUIRED TOTAL A WITH LB HYGIENE. [id number] THANK YOU,YAYA ARNETT
[2020-05-20 16:46] VITALS: BP 98/56
--- NOTE | 2020-05-20 18:45 | NUR ---
PATIENT IN BED WITH IV INTACT. NO COMPLAINTS OR SIGNS OF DISTRESS. CALL LIGHT WITHIN REACH.
[2020-05-20 20:00] VITALS: BP 144/72
[2020-05-21 04:00] VITALS: BP 104/56
--- NOTE | 2020-05-21 06:50 | NUR ---
RESTING IN BED WITH EYES CLOSED. RESPIRATIONS EVEN AND UNLABORED. NO C/O PAIN. NO S/S OF ACUTE DISTRESS NOTED. ON CONTACT ISOLATION FOR MRSA IN RLE. UP WITH PHYSICAL THERAPY. RIGHT AKA. EXCORIATION TO BUTTOCKS. SCAB TO LEFT HEEL. ON 3L O2, NC. IV TO LEFT FOREARM, SL. SITE PATENT WITHOUT REDNESS OR SWELLING. CALL LIGHT IN REACH. WILL CONTINUE TO MONITOR.
[2020-05-21 10:09] VITALS: BP 99/58
--- NOTE | 2020-05-21 12:45 | NUR ---
PATIENT DEMANDED THAT THIS NURSE PUT HIM BACK INTO BED. THIS NURSE EXPLAINED TO PATIENT THAT IS APART OF HIS THERAPY TO STAY UP FOR LUNCH AND UNTIL THERAPY GETS BACK ON THE FLOOR. PATIENT STATED "IF YOU WILL NOT PUT ME BACK IN BED I WILL DO IT MYSELF AND I DON'T CARE IF I FALL IN THE FLOOR." THIS NURSE THEN PROCEEDED TO ASSIST PATIENT BACK TO BED. PATIENT IN BED, CALL LIGHT IN REACH. WILL CONTINUE TO MONITOR.
--- NOTE | 2020-05-21 13:07 | NUR ---
OT NOTE: PT CONTINUALLY ASKING WHEN HE IS BEING TRANSFERRED TO SNF.. WANTS TO BE DCD FROM THIS HOSPITAL IN [place]ES THAT HE WILL BE ABLE TO SMOKE AT THE NURSING FACILITY. EXPLAINED TO PT AGAIN THAT THERE WERE SEVERAL THINGS THAT HAVE TO FALL INTO PLACE PRIOR TO TRANSFER TO SNF. PT STATES THAT HE IS GOING LEAVE THE HOSPITAL IF HES NOT TRANSFERRED TODAY. BED MOB WITH CGA. GOOD - STATIC SITTING BALANCE ON EOB. SIT TO STAND WITH MIN/MOD ASSIST. HAD PT TRY TO STRAIGHTEN L KNEE AND UES TO IMPROVE STRENGTH AND IMPROVE POSTURE AND SUPPORT FOR WALKER MGMT. PT ABLE TO TAKE A FEW HOPS TO CHAIR; SEVERAL CHAIR PUSH UPS TO ASSIST WITH TRICEP STRENGTH. SIT TO STAND AGAIN WITH ATTEMPTS TO EXT KNEE AND ELBOWS, PT APPROX -25 DEGREES KNEE EXTENSION DUE TO WEAKNESS. PT GETS VERY ANGRY WITH CONTINUED EXS.. PT UP IN CHAIR AND APPROX 15 MIN LATER PT YELLS FOR ASSIST. STATES THAT HE NEEDS TO WALK TO BATHROOM (WHICH IS APPROX 15 FT AWAY) BEGAN AMBULATING WITH OT AND PT WITH WALKER AND PT GOT ABOUT 6FT AWAY FROM CHAIR AND BECAME INCREASINGLY MORE WEAK.. A BS COMMODE WAS BROUGHT IN AND PT HAD TO BE PHYSICALLY LIFTED TO BS COMMODE. REQUIRED MOD ASSIST FOR TOILET HYGIENE AND ADJUSTING BRIEF. AMB BACK TO CHAIR WITH MOD ASSIST. PT VERY FATIGUED FOLLOWING THIS. EDUCATED PT ON IMPORTANCE OF BACKING UP CLOSE TO SURFACE PRIOR TO SITTING DOWN ( PT IS CONTINUALLY EDUCATED ABOUT THIS BUT STILL STOPS APPROX A FOOT AWAY FROM SURFACE AND BEGINS TO SIT) JD TSANG, OTR/L [phone]; [phone]
[2020-05-21 13:36] VITALS: BP 106/58
--- NOTE | 2020-05-21 16:05 | NUR ---
FAMILY AT BEDSIDE. PATIENT WITHOUT DISTRESS.
[2020-05-21 18:41] VITALS: BP 107/55
--- NOTE | 2020-05-21 18:49 | NUR ---
RESTING IN BED. NO C/O PAIN. NO S/S OF ACUTE DISTRESS NOTED. CALL LIGHT IN REACH.
--- NOTE | 2020-05-21 19:00 | NUR ---
ALERT AND ORIENTED WATCHING TV. REQUESTING PAIN PILL. CHECKED EMAR AND GAVE PATIENT TIME THAT NEXT PAIN MEDICINE IS AVAILABLE, PT VERBALIZES UNDERSTANDING.LEFT FOREARM IV IS SALINE LOCKED AT THIS TIME. ASSESSMENT COMPLETED. PATIENT VOIDS IN URINAL, EMPTIED AND CHARTED. DENIES FURTHER NEEDS AT THIS TIME. CALL LIGHT CLOSE. ISOLATION PRECAUTIONS REMAIN IN PLACE. CPOC.
[2020-05-21 20:00] VITALS: BP 89/53
[2020-05-21 21:20] VITALS: BP 102/68
--- NOTE | 2020-05-22 03:33 | NUR ---
EYES CLOSED. NO DISTRESS NOTED. UNLABORED RESPIRATIONS. CALL LIGHT CLOSE. CPOC.
--- NOTE | 2020-05-22 08:00 | NUR ---
LYING IN BED WITHOUT DISTRESS.CALL LIGHT IN REACH
[2020-05-22 10:13] VITALS: BP 112/54
[2020-05-22 14:34] VITALS: BP 123/49
--- NOTE | 2020-05-22 15:42 | NUR ---
OT NOTE: PT WAS UP IN CHAIR.. REQUESTING TO LIE DOWN.. ENCOURAGED TO SIT UP FOR AT LEAST ANOTHER HOUR BUT PT REFUSED. SIT TO STAND FROM CHAIR WITH MIN/MOD ASSIST WITH USE OF WALKER.. CONTINUAL CUES AND EDUCATION TO STRAIGHTEN L LE AND B UES WHILE USING WALKER AND TO SCOOT BACK TO SURFACE PRIOR TO SITTING DOWN. OT HAS WORKED WITH PT ON THIS DAILY, HOWEVER, NO IMPROVEMENT AT THIS TIME. UE EXS TO ASSIST WITH TRICEP STRENGTH; ABLE TO FEED SELF AND PERFORM SIMPLE GROOMING TASKS WITH SET UP;;INCREASED ASSIST REQUIRED FOR LE ADLS JD TSANG, OTR/L [phone]
--- NOTE | 2020-05-22 18:39 | NUR ---
RESTING IN BED WITH EYES OPEN. NO C/O PAIN. NO S/S OF ACUTE DISTRESS NOTED. CALL LIGHT IN REACH. DENIES ANY NEEDS AT THIS TIME. WILL CONTINUE TO MONITOR.
[2020-05-22 18:44] VITALS: BP 99/43
[2020-05-22 20:00] VITALS: BP 103/50
[2020-05-23 04:00] VITALS: BP 96/53
--- NOTE | 2020-05-23 04:19 | NUR ---
ASSESSED AT THE BEGINNING OF THE SHIFT. PT WAS ALERT AND ORIENTED, ABLE TO VERBALIZE NEEDS. HIS NEW AKA STILL HAS STAPES AND THERE IS NO DRESSING OR DRAINAGE. NO REDNESS NOTED EITHER. O2 IS AT 2 LITERS AND HE HAS BEEN AWAKE AND ASKING FOR PAIN MEDS ORDERED AND MULTIPLE SODAS. HE DID NOT REQUIRE ANY INSULIN AT HS AND IS AWAKE AT THIS TIME WATCHING TV.
--- NOTE | 2020-05-23 06:30 | NUR ---
AWAKE WATCHING TV AND THE WEATHER. NO COMPLAINTS VOICED
[2020-05-23] MEDS ORDERED: ENTRESTO 24 MG1 EACH PO (07:28)
[2020-05-23] MEDS ORDERED: ELIQUIS2.5 MG PO (07:28)
[2020-05-23] MEDS ORDERED: PERCOCET 10-321 EAC1 PO (07:29)
[2020-05-23] MEDS ORDERED: GLUCOPHAGE500 MG PO (07:30)
--- NOTE | 2020-05-23 10:17 | MORECARE ---
CASE MANAGEMENT DISCHARGE SUMMARY PATIENT: RANDY HOLCOMB UNIT: [id number] ADM DATE: 05/07/20 AGE: 64 : 53 SEX: M ROOM/BED: D.2209 AUTHOR: RYLAN,DOC PHYSICIAN: REFERRING PHYSICIAN: BECCA DUTTON MD DATE OF SERVICE: 05/23/20 Discharge Plan Patient Name: RANDY HOLCOMB Facility: [facility]:[place] : 1955 Planned Disposition: Residential Facility Anticipated Discharge Date: Discharge Date: Expected LOS: Initial Reviewer: [email or web address] Initial Review Date: 05/07/2020 Generated: 05/23/20 11:16 am Comments DCP- Discharge Planning Updated by [email or web address]: Cheyenne Aleman on 05/23/20 9:[address] I HAVE FAXED ALL CLINICAL TO [facility], HE WILL BE GOING TO A SKILLED BED. THEY WILL TRANSPORT HIM DCP- Discharge Planning Updated by [email or web address]: Cheyenne Aleman on 05/20/20 12:[address] CHECKED WITH [facility] ABOUT UPDATE ON ACCEPTANCE, SHE STATED THAT THEY ARE STILL WORKING ON FINANCIAL TO TAKE HIM. PATIENT STATED THAT HE GETS $900.00 AND SOMETHING EVERY MONTH FROM MEDICARE. THE PATIENT ALSO STATED THAT HIS CELL PHONE # IS [phone] DCP- Discharge Planning Updated by [id number]: Cheyenne Aleman on 05/19/20 2:[address] CHILO WITH [employer] WAS CALLING PATIENT DCP- Discharge Planning Updated by [email or web address]: Cheyenne Aleman on 05/19/20 9:[address] called [facility] to get update with Chilo about placement, left message with her to call me back. I also reached out to Sola Edwards to see if she could assist. Sola Edwards stated that he is approved clinically, but just needed financial paper work. CM will continue to follow and assist as needed DCP- Discharge Planning Updated by [email or web address]: Cheyenne Aleman on 05/16/20 9:[address] I CALLED [facility] AND SPOKE WITH CHILO TO LET HER KNOW PER DR DUTTON THIS WILL TURN INTO A LONGTERM PLACEMENT CHILO WAS GOING TO SPEAK WITH THE PATIENT ABOUT GETTING FINICIAL INFORMATION DCP- Discharge Planning Updated by [email or web address]: Cheyenne Aleman on 05/15/20 12:[address] REFERRAL SENT TO [facility] AND I SPOKE WITH SOLA JERRY SHE WILL GET BACK WITH ME SHE ALSO REPRESENTS [facility] SHE WILL CALL ME WITH A DETERMINATION DCP- Discharge Planning Updated by [email or web address]: Cheyenne Aleman on 05/14/20 6:[address] I HAVE SENT A REFERRAL TO THE [facility] ON 05/12/20 THEY ARE STILL REVIEWING ( OF 05/13/20) THIS AM I SENT A REFERRAL TO [facility] I WILL REACH OUT TO THEM WHEN THE OFFICE OPENS PER ADELAIDA ( RESIDENTIAL NOTES) THEY WERE ONE WHO WAS REVIEWING HIM WHEN HE WAS DOWN THERE. CM WILL CONTINUE TO FOLLOW AND ASSIST DCP- Discharge Planning Updated by [email or web address]: Cheyenne Aleman on 05/12/20 12:[address] PER ADELAIDA THE CONVEYOR BELT OPERATOR HE IS GOOD TO GO TO ANY FDC, SHE THOUGHT IT WOULD BE BEST IF HE STAYED IN WITH HIS DR'S ARE. I HAVE SENT THE REFERRAL TO [facility] Last DP export: 05/20/20 12:26 p Patient Name: RANDY HOLCOMB Page [id number] at 1017 All edits/amendments must be made on the electronic document DICTATION DATE: 05/23/20 1016 PROPERTY SUPERVISOR: PETE 05/23/20 1016 RPT#: [id number] DC DATE: STATUS: ADM IN [facility] [address] [place] [address] END OF REPORT
[2020-05-23 11:02] VITALS: BP 102/58
--- NOTE | 2020-05-23 12:00 | NUR ---
24 DEBRA REMOVED. HAD SOME PAIN DURING REMOVAL. STERI STRIPS APPLIED DIRECTED.
[2020-05-23 13:02] VITALS: BP 106/40
--- NOTE | 2020-05-23 13:51 | MORECARE ---
CASE MANAGEMENT DISCHARGE SUMMARY PATIENT: RANDY HOLCOMB UNIT: [id number] ADM DATE: 05/07/20 AGE: 64 : 53 SEX: M ROOM/BED: D.2209 AUTHOR: RYLAN,DOC PHYSICIAN: REFERRING PHYSICIAN: BECCA DUTTON MD DATE OF SERVICE: 05/23/20 Discharge Plan Patient Name: RANDY HOLCOMB Facility: [facility]:[place] : 1955 Planned Disposition: Correction Facility Anticipated Discharge Date: Discharge Date: Expected LOS: Initial Reviewer: [email or web address] Initial Review Date: 05/07/2020 Generated: 05/23/20 2:50 pm Comments DCP- Discharge Planning Updated by [email or web address]: Cheyenne Aleman on 05/23/20 12:[address] PATIENT WILL BE GOING TO [facility] THEY WILL PICK HIM UP AT 3:00. DCP- Discharge Planning Updated by [id number]: Cheyenne Aleman on 05/23/20 9:[address] I HAVE FAXED ALL CLINICAL TO [facility], HE WILL BE GOING TO A SKILLED BED. THEY WILL TRANSPORT HIM DCP- Discharge Planning Updated by [email or web address]: Cheyenne Aleman on 05/20/20 12:[address] CHECKED WITH [facility] ABOUT UPDATE ON ACCEPTANCE, SHE STATED THAT THEY ARE STILL WORKING ON FINANCIAL TO TAKE HIM. PATIENT STATED THAT HE GETS $900.00 AND SOMETHING EVERY MONTH FROM MEDICARE. THE PATIENT ALSO STATED THAT HIS CELL PHONE # IS [phone] DCP- Discharge Planning Updated by [email or web address]: Cheyenne Aleman on 05/19/20 2:[address] CHILO WITH [employer] WAS CALLING PATIENT DCP- Discharge Planning Updated by [email or web address]: Cheyenne Aleman on 05/19/20 9:[address] called [facility] to get update with Chilo about placement, left message with her to call me back. I also reached out to Sola Edwards to see if she could assist. Sola Edwards stated that he is approved clinically, but just needed financial paper work. CM will continue to follow and assist as needed DCP- Discharge Planning Updated by [email or web address]: Cheyenne Aleman on 05/16/20 9:[address] I CALLED [facility] AND SPOKE WITH CHILO TO LET HER KNOW PER DR DUTTON THIS WILL TURN INTO A CASTING SORTER PLACEMENT CHILO WAS GOING TO SPEAK WITH THE PATIENT ABOUT GETTING FINICIAL INFORMATION DCP- Discharge Planning Updated by [id number]: Cheyenne Aleman on 05/15/20 12:[address] REFERRAL SENT TO [facility] AND I SPOKE WITH SOLA EDWARDS SHE WILL GET BACK WITH ME SHE ALSO REPRESENTS [facility] SHE WILL CALL ME WITH A DETERMINATION DCP- Discharge Planning Updated by [id number]: Cheyenne Aleman on 05/14/20 6:[address] I HAVE SENT A REFERRAL TO [facility] ON 05/12/20 THEY ARE STILL REVIEWING ( OF 05/13/20) THIS AM I SENT A REFERRAL TO [facility] ( [facility]) I WILL REACH OUT TO THEM WHEN THE OFFICE OPENS PER ADELAIDA ( [facility] NOTES) THEY WERE ONE WHO WAS REVIEWING HIM WHEN HE WAS DOWN THERE. CM WILL CONTINUE TO FOLLOW AND ASSIST DCP- Discharge Planning Updated by [email or web address]: Cheyenne Aleman on 05/12/20 12:[address] PER ADELAIDA THE LIBRARY HELPER HE IS GOOD TO GO TO ANY DETENTION, SHE THOUGHT IT WOULD BE BEST IF HE STAYED IN WITH HIS DR'S ARE. I HAVE SENT THE REFERRAL TO [facility] Last DP export: 05/23/20 9:17 a Patient Name: RANDY HOLCOMB Page [id number] at 1351 All edits/amendments must be made on the electronic document DICTATION DATE: 05/23/20 1350 MANAGER RELIABILITY: PETE 05/23/20 1350 RPT#: [id number] DC DATE: STATUS: ADM IN [facility] [address] [place] [address] END OF REPORT
--- NOTE | 2020-05-23 13:54 | NUR ---
called report to [facility].
--- NOTE | 2020-05-23 14:01 | MORECARE ---
CASE MANAGEMENT DISCHARGE SUMMARY PATIENT: RANDY HOLCOMB UNIT: [id number] ADM DATE: 05/07/20 AGE: 64 : 53 SEX: M ROOM/BED: D.2209 AUTHOR: RYLAN,DOC PHYSICIAN: REFERRING PHYSICIAN: BECCA DUTTON MD DATE OF SERVICE: 05/23/20 Discharge Plan Patient Name: RANDY HOLCOMB Facility: [facility]:[place] : 1955 Planned Disposition: Retirement Facility Anticipated Discharge Date: Discharge Date: Expected LOS: Initial Reviewer: [id number] Initial Review Date: 05/07/2020 Generated: 05/23/20 3:00 pm Comments DCP- Discharge Planning Updated by [email or web address]: Cheyenne Aleman on 05/23/20 12:[address] IMM AND LISET FOR [facility] DCP- Discharge Planning Updated by [id number]: Cheyenne Aleman on 05/23/20 12:[address] PATIENT WILL BE GOING TO [facility] THEY WILL PICK HIM UP AT 3:00. DCP- Discharge Planning Updated by [id number]: Cheyenne Aleman on 05/23/20 9:[address] I HAVE FAXED ALL CLINICAL TO [facility], HE WILL BE GOING TO A SKILLED BED. THEY WILL TRANSPORT HIM DCP- Discharge Planning Updated by [email or web address]: Cheyenne Aleman on 05/20/20 12:[address] CHECKED WITH [facility] ABOUT UPDATE ON ACCEPTANCE, SHE STATED THAT THEY ARE STILL WORKING ON FINANCIAL TO TAKE HIM. PATIENT STATED THAT HE GETS $900.00 AND SOMETHING EVERY MONTH FROM MEDICARE. THE PATIENT ALSO STATED THAT HIS CELL PHONE # IS [phone] DCP- Discharge Planning Updated by [email or web address]: Cheyenne Aleman on 05/19/20 2:[address] CHILO WITH [facility] WAS CALLING PATIENT DCP- Discharge Planning Updated by [id number]: Cheyenne Aleman on 05/19/20 9:[address] called [facility] to get update with Chilo about placement, left message with her to call me back. I also reached out to Sola Edwards to see if she could assist. Sola Edwards stated that he is approved clinically, but just needed financial paper work. CM will continue to follow and assist as needed DCP- Discharge Planning Updated by [email or web address]: Cheyenne Aleman on 05/16/20 9:[address] I CALLED [facility] AND SPOKE WITH CHILO TO LET HER KNOW PER DR DUTTON THIS WILL TURN INTO A RESIDENTIAL PLACEMENT CHILO WAS GOING TO SPEAK WITH THE PATIENT ABOUT GETTING FINICIAL INFORMATION DCP- Discharge Planning Updated by [email or web address]: Cheyenne Aleman on 05/15/20 12:[address] REFERRAL SENT TO [facility] AND I SPOKE WITH SOLA EDWARDS SHE WILL GET BACK WITH ME SHE ALSO REPRESENTS [facility] SHE WILL CALL ME WITH A DETERMINATION DCP- Discharge Planning Updated by [id number]: Cheyenne Aleman on 05/14/20 6:[address] I HAVE SENT A REFERRAL TO THE [facility] ON 05/12/20 THEY ARE STILL REVIEWING ( OF 05/13/20) THIS AM I SENT A REFERRAL TO [facility] ( [facility]) I WILL REACH OUT TO THEM WHEN THE OFFICE OPENS PER ADELAIDA ( [facility] NOTES) THEY WERE ONE WHO WAS REVIEWING HIM WHEN HE WAS DOWN THERE. CM WILL CONTINUE TO FOLLOW AND ASSIST DCP- Discharge Planning Updated by [email or web address]: Cheyenne Aleman on 05/12/20 12:[address] PER ADELAIDA THE SURGICAL ASST HE IS GOOD TO GO TO ANY SNF, SHE THOUGHT IT WOULD BE BEST IF HE STAYED IN WITH HIS DR'S ARE. I HAVE SENT THE REFERRAL TO THE [facility] Coverage Notice Reviewer: [id number] Aleman Notice Issued Date-Time: 05/23/2020 13:45 Notice Type: IM Discharge Notice Notice Delivered To: Patient Relationship to Patient: Rides Supervisor Name: Delivery Method: HAND - Hand Delivered Marycruz Days: Prior Verbal Notification: Recipient Understood Notice: Yes Recipient Signature: Yes Med Rec Note Co-signed by Attending: Coverage Notice Comment: Reviewer: [id number] Aleman Notice Issued Date-Time: 05/23/2020 13:45 Notice Type: Patient Choice Letter Notice Delivered To: Patient Relationship to Patient: Rides Supervisor Name: Delivery Method: HAND - Hand Delivered Marycruz Days: Prior Verbal Notification: Recipient Understood Notice: Yes Recipient Signature: Yes Med Rec Note Co-signed by Attending: Coverage Notice Comment: Last DP export: 05/23/20 12:51 p Patient Name: RANDY HOLCOMB Page [id number] at 1401 All edits/amendments must be made on the electronic document DICTATION DATE: 05/23/201399 ENVIRONMENTAL SCIENCE PROFESSOR: PETE 05/23/20 1400 RPT#: [id number] DC DATE: STATUS: ADM IN [facility] [address] [place] [address] END OF REPORT
--- NOTE | 2020-05-23 14:19 | NUR ---
IV THERAPY REMOVED FROM RIGHT FOREARM TIP INTACT. PT SIGNED DISCHARGE PAPERWORK. WAITING ON [facility] TO ARRIVE.
--- NOTE | 2020-05-26 09:14 | OP ---
PATIENT NAME: RANDY HOLCOMB MEDICAL RECORD: [id number] :53 LOCATION:D.MS [id number] ADMISSION DATE:05/07/20 SURGEON: ALFA BRISCOE MD DATE OF OPERATION: 05/09/2020 PREOPERATIVE DIAGNOSIS: Chronic osteomyelitis of the right tibia, status post total knee arthroplasty with multiple fractures that had been fixed. POSTOPERATIVE DIAGNOSIS: Chronic osteomyelitis of the right tibia, status post total knee arthroplasty with multiple fractures that had been fixed. 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 SURGEON: Alfa Briscoe MD ANESTHESIA: General. INTRAOPERATIVE COMPLICATIONS: None. SUMMARY OF PATHOLOGIC FINDINGS: Essentially none above the knee. INDICATIONS: This gentleman had had a total knee arthroplasty with subsequent periprosthetic fracture. He had a draining open MRSA wounds for several years and the decision was made to proceed with an amputation as this was keeping him sick and suppression was no longer tolerable. OPERATIVE SUMMARY IN DETAIL: After obtaining appropriate preoperative orthopedic surgery consent as well as anesthetic consultation, evaluation and clearance, the patient was brought to the operating room and placed on the operating table in a supine position. After general laryngeal mask airway was administered, tourniquet was placed about the proximal aspect of the patient's right upper extremity. The right upper extremity was then prepped and draped in routine sterile fashion. Timeout was taken and agreed upon by all given the patient's unique identifiers. Leg was elevated, but not exsanguinated and the tourniquet was inflated. The planned incision was drawn with a sterile marking pin and then fishmouth incision was made circumferentially about the leg taken down across the quad, the knee cavity itself was avoided without spillage of any of the knee contents into the wound. After the fishmouth was created anteriorly and the great vessels were identified and high ligated, corticotomy was then performed. The posterior flap likewise was taken down, drill holes were then placed in the medial aspect of the femur for adductor myodesis. The adductors were myodesed with #2 Ethibond. Wound was then again completely irrigated, tourniquet was deflated to be sure that all bleeding was under control. Excess bleeding was either high ligated or cauterized. When bleeding was under control, the AKA incision was closed with a combination of #2 Ethibond, #1 Vicryl, 2-0 Vicryl and skin elaine done by DANIELA Maldonado, and REMBERTO Krishnan. Sterile dressings were applied. The patient was awakened and taken to the recovery room in stable condition. All final needle and sponge counts were correct. TRANSINT:[id number] Voice Confirmation ID: [id number] DOCUMENT ID: [id number] OPERATIVE REPORT [id number] RANDY HOLCOMB MD, ALFA HELTON at 0914 CC: [id number] DICTATION DATE: 05/22/20 1116 SECONDARY SET UP MAN: 05/22/20 2223 DIS IN 05/23/20 [place] [id number] [place] [address]
--- NOTE | 2020-05-26 14:27 | MORECARE ---
CASE MANAGEMENT DISCHARGE SUMMARY PATIENT: RANDY HOLCOMB UNIT: [id number] ADM DATE: 05/07/20 AGE: 64 : 53 SEX: M ROOM/BED: D.2209 AUTHOR: RYLAN,DOC PHYSICIAN: REFERRING PHYSICIAN: BECCA DUTTON MD DATE OF SERVICE: 05/26/20 Discharge Plan Patient Name: RANDY HOLCOMB Facility: [facility]:[place] : 1955 Planned Disposition: [facility] Facility Anticipated Discharge Date: Discharge Date: 05/23/2020 Expected LOS: Initial Reviewer: [email or web address] Initial Review Date: 05/07/2020 Generated: 05/26/20 3:27 pm Comments DCP- Discharge Planning Updated by [email or web address]: Cheyenne Aleman on 05/23/20 12:[address] IMM AND LISET FOR [facility] DCP- Discharge Planning Updated by [id number]: Cheyenne Aleman on 05/23/20 12:[address] PATIENT WILL BE GOING TO [facility] THEY WILL PICK HIM UP AT 3:00. DCP- Discharge Planning Updated by [id number]: Cheyenne Aleman on 05/23/20 9:[address] I HAVE FAXED ALL CLINICAL TO [facility], HE WILL BE GOING TO A SKILLED BED. THEY WILL TRANSPORT HIM DCP- Discharge Planning Updated by [id number]: Cheyenne Aleman on 05/20/20 12:[address] CHECKED WITH [facility] ABOUT UPDATE ON ACCEPTANCE, SHE STATED THAT THEY ARE STILL WORKING ON FINANCIAL TO TAKE HIM. PATIENT STATED THAT HE GETS $900.00 AND SOMETHING EVERY MONTH FROM MEDICARE. THE PATIENT ALSO STATED THAT HIS CELL PHONE # IS [phone] DCP- Discharge Planning Updated by [id number]: Cheyenne Aleman on 05/19/20 2:[address] CHILO WITH [facility] WAS CALLING PATIENT DCP- Discharge Planning Updated by [email or web address]: Cheyenne Aleman on 05/19/20 9:[address] called [facility] to get update with Chilo about placement, left message with her to call me back. I also reached out to Sola Edwards to see if she could assist. Sola Edwards stated that he is approved clinically, but just needed financial paper work. CM will continue to follow and assist as needed DCP- Discharge Planning Updated by [email or web address]: Cheyenne Aleman on 05/16/20 9:[address] I CALLED [facility] AND SPOKE WITH CHILO TO LET HER KNOW PER DR DUTTON THIS WILL TURN INTO A DOWNSTREAM BIOMANUFACTURING TECHNICIAN PLACEMENT CHILO WAS GOING TO SPEAK WITH THE PATIENT ABOUT GETTING FINICIAL INFORMATION DCP- Discharge Planning Updated by [email or web address]: Cheyenne Aleman on 05/15/20 12:[address] REFERRAL SENT TO [facility] AND I SPOKE WITH SOLA EDWARDS SHE WILL GET BACK WITH ME SHE ALSO REPRESENTS [facility] SHE WILL CALL ME WITH A DETERMINATION DCP- Discharge Planning Updated by [id number]: Cheyenne Aleman on 05/14/20 6:[address] I HAVE SENT A REFERRAL TO [facility] ON 05/12/20 THEY ARE STILL REVIEWING ( OF 05/13/20) THIS AM I SENT A REFERRAL TO [facility] ( [facility]) I WILL REACH OUT TO THEM WHEN THE OFFICE OPENS PER ADELAIDA ( [facility] NOTES) THEY WERE ONE WHO WAS REVIEWING HIM WHEN HE WAS DOWN THERE. CM WILL CONTINUE TO FOLLOW AND ASSIST DCP- Discharge Planning Updated by [id number]: Cheyenne Aleman on 05/12/20 12:[address] PER ADELAIDA THE SAFETY AND SKILL BASED PAY MANAGER HE IS GOOD TO GO TO ANY PRISON, SHE THOUGHT IT WOULD BE BEST IF HE STAYED IN HS WITH HIS DR'S ARE. I HAVE SENT THE REFERRAL TO [facility] Coverage Notice Reviewer: [id number] Aleman Notice Issued Date-Time: 05/23/2020 13:45 Notice Type: IM Discharge Notice Notice Delivered To: Patient Relationship to Patient: Family Practice Medical Doctor Name: Delivery Method: HAND - Hand Delivered Marycruz Days: Prior Verbal Notification: Recipient Understood Notice: Yes Recipient Signature: Yes Med Rec Note Co-signed by Attending: Coverage Notice Comment: Reviewer: [id number] Aleman Notice Issued Date-Time: 05/23/2020 13:45 Notice Type: Patient Choice Letter Notice Delivered To: Patient Relationship to Patient: Family Practice Medical Doctor Name: Delivery Method: HAND - Hand Delivered Marycruz Days: Prior Verbal Notification: Recipient Understood Notice: Yes Recipient Signature: Yes Med Rec Note Co-signed by Attending: Coverage Notice Comment: Last DP export: 05/23/20 1:01 p Patient Name: RANDY HOLCOMB Page [id number] at 1427 All edits/amendments must be made on the electronic document DICTATION DATE: 05/26/201426 OVEREDGE SEWER: PETE 05/26/201426 RPT#: [id number] DC DATE:05/23/20 STATUS: DIS IN [facility] [address] [place] [address] END OF REPORT
== END 2020-05-23 16:14 | DRG 475 ==
LOC: D.MS 16:22
PROVIDERS: Orthopaedic Surgery; ADMIT Family Medicine; ATTEND Family Medicine
PROC: 0Y6F0ZZ Detachment at Right Knee Region, Open Approach (ICD-10-PCS; principal; 2020-05-09 07:30)
DX: M86.661 Other chronic osteomyelitis, right tibia and fibula (principal); L97.429 Non-pressure chronic ulcer of left heel and midfoot with unspecified severity; I42.9 Cardiomyopathy, unspecified; E11.41 Type 2 diabetes mellitus with diabetic mononeuropathy; I10 Essential (primary) hypertension; J44.9 Chronic obstructive pulmonary disease, unspecified; M19.90 Unspecified osteoarthritis, unspecified site; E53.8 Deficiency of other specified B group vitamins; E78.00 Pure hypercholesterolemia, unspecified; F32.9 Major depressive disorder, single episode, unspecified; I48.91 Unspecified atrial fibrillation; K59.00 Constipation, unspecified; B95.62 Methicillin resistant Staphylococcus aureus infection as the cause of diseases classified elsewhere; F17.200 Nicotine dependence, unspecified, uncomplicated